=== PATIENT | female | born 1955 | race Caucasian/White ===

== ENCOUNTER 2021-01-26 08:53 | Outpatient (REF) | payer MEDICARE, SELFPAY ==
--- NOTE | ~2021-01-26 | MM_ITS ---
EXAMINATION: MM SCREENING DIGITAL BREAST TOMOSYNTHESIS, BILATERAL CLINICAL INFORMATION: Screening. Asymptomatic. The lifetime risk of breast cancer based on the Tyrer-Cuzick Model is 8%. COMPARISON: Mammography: 12/14/2019, 11/03/2018, 07/19/2017 TECHNIQUE: Digital breast tomosynthesis is performed in both the craniocaudal and mediolateral oblique views along with computer-aided detection (CAD). Synthesized 2D images are generated from the tomosynthesis. FINDINGS: There are scattered areas of fibroglandular density (ACR BI-RADS breast composition Category b). Breast tissue composition borders on predominantly fatty. Background stromal markings are stable. There are no significant masses, abnormal calcifications, or other abnormalities. The axilla and skin contours are unremarkable. No significant changes. MM/MM tomosynthesis screening BI IMPRESSION: No mammographic evidence of malignancy. ASSESSMENT: BI-RADS 1: Negative RECOMMENDATION: Routine annual mammography screening. This patient's information was entered into a reminder system with a target due date for their next mammogram.
== END 2021-01-26 08:54 | disposition home or self-care (01) ==
LOC: HO.MAMMO 08:53
PROVIDERS: PCP Internal Medicine; Visit Provider Internal Medicine
DX: Z12.31 Encounter for screening mammogram for malignant neoplasm of breast (principal)
CPT/HCPCS: 77063; 77067

== ENCOUNTER → 2021-07-16 10:30 | Outpatient (BNVA) | payer MEDICARE, SELFPAY | PROVIDERS: PCP Internal Medicine; Referring Provider Internal Medicine; Visit Provider Physician Assistant Surgical | DX: Z98.84 Bariatric surgery status (principal); Z68.29 Body mass index [BMI] 29.0-29.9, adult | CPT/HCPCS: 99212 ==

== ENCOUNTER 2021-07-20 14:25 | Outpatient (REF) | payer MEDICARE, SELFPAY ==
[2021-07-20 14:52] LABS: MANUAL DIFF FLAG NO
[2021-07-20 15:07] LABS: Basophils Absolute Auto 0.1 X10*3/uL (0.0-0.2); Basophils Percent Auto 0.9 % (0-2); Eosinophils Absolute Auto 0.3 X10*3/uL (0.0-0.4); Hematocrit 38.8 % (37-47); Hemoglobin 12.7 g/dl (12.0-16.0); Imm Gran Abs Auto 0.01 X10*3/uL (0.00-0.03); Imm Gran Pct Auto 0.2 % (0.0-0.4); Lymphocytes Percent Auto 36.6 % (20-40); Mean Corpuscular HGB Conc 32.7 g/dl (31.0-35.0); Mean Corpuscular Hemoglobin 30.8 pg (27.0-33.0); Mean Corpuscular Volume 93.9 fL (80-98); Mean Platelet Volume 10.5 fL (9.4-12.3); Monocytes Absolute Auto 0.6 X10*3/uL (0.1-1.2); Monocytes Percent Auto 9.9 % (2-11); Neutrophils Absolute Auto 2.6 X10*3/uL (2.0-8.3); Neutrophils Percent Auto 47.4 % (45-73); Platelet Count 242 X10*3/uL (160-400); Red Blood Count 4.13 X10*6/uL (4.20-5.50); Red Cell Distribution Width 12.9 % (11.0-16.0); White Blood Count 5.6 X10*3/uL (4.8-10.8)
[2021-07-20 15:31] LABS: Estimated Average Glucose 94 mg/dL; Hemoglobin A1c % 4.9 %
[2021-07-20 16:02] LABS: Alanine Aminotransferase 11 U/L (0-31); Albumin Level 4.4 g/dL (3.5-5.0); Alkaline Phosphatase 78 U/L (39-117); Anion Gap 11 (12-20); Aspartate Amino Transferase 20 U/L (5-31); Bilirubin Total 0.7 mg/dL (0.0-1.0); Blood Urea Nitrogen 21 mg/dL (9-16); C Reactive Protein 0.57 mg/dL (< or = 0.50); Calcium 9.9 mg/dL (8.4-10.2); Carbon Dioxide 26 mmol/L (22-29); Chloride 107 mmol/L (96-108); Cholesterol 245 mg/dL; Estimated Glomerular Filt Rate > 60; Glucose Random 95 mg/dL (60-115); HDL Cholesterol 67 mg/dL; Iron 94 mcg/dL (30-160); LDL Cholesterol Calculated 143 mg/dl; Percent Iron Saturation 27 % (15-50); Potassium 4.2 mmol/L (3.3-5.1); Sodium 140 mmol/L (135-145); Total Iron Binding Capacity 352 mcg/dL (228-428); Total Protein 7.2 g/dL (6.5-8.0); Triglycerides 177 mg/dL; Unsaturated Iron Binding 258 ug/dL
[2021-07-20 16:25] LABS: Ferritin 93 ng/mL (10-250); TSH reflex Free T4 0.97 uIU/mL (0.32-4.0); Vitamin D 25-OH Total 38.7 ng/mL (>30)
[2021-07-20 16:37] LABS: Folate 15.3 ng/mL (> or = 4.0); Vitamin B12 302 pg/mL (200-900)
[2021-07-21 17:05] LABS: PTHI 33 pg/mL (14-64)
[2021-07-23 07:31] LABS: Zinc 70 mcg/dL (60-130)
[2021-07-25 01:17] LABS: Vitamin A 55 mcg/dL (38-98)
[2021-07-25 09:46] LABS: Vitamin B1 34 nmol/L (8-30)
== END 2021-07-20 14:26 | disposition home or self-care (01) ==
LOC: HO.LAB 14:25
PROVIDERS: PCP Internal Medicine; Visit Provider Physician Assistant Surgical
DX: E66.9 Obesity, unspecified (principal); Z98.84 Bariatric surgery status
CPT/HCPCS: 36415; 80053; 80061; 82306; 82607; 82728; 82746; 83036; 83540; 83970; 84425; 84443; 84590; 84630; 85025; 86140

== ENCOUNTER 2022-01-28 09:10 | Outpatient (REF) | payer MEDICARE, SELFPAY ==
--- NOTE | ~2022-01-28 | MM_ITS ---
EXAMINATION: MM SCREENING DIGITAL BREAST TOMOSYNTHESIS, BILATERAL CLINICAL INFORMATION: Screening. Asymptomatic. Prior history reduction mammoplasty, 2006. The lifetime risk of breast cancer based on the Tyrer-Cuzick Model is 7%. COMPARISON: Mammography: 01/26/2021, 12/14/2019, 11/03/2018, 07/19/2017 TECHNIQUE: Digital breast tomosynthesis is performed in both the craniocaudal and mediolateral oblique views along with computer-aided detection (CAD). Synthesized 2D images are generated from the tomosynthesis. FINDINGS: There are scattered areas of fibroglandular density (ACR BI-RADS breast composition Category b). There are no significant masses, abnormal calcifications, or other abnormalities. Parenchymal pattern is similar to prior studies. The axilla and skin contours are unremarkable. MM/MM tomosynthesis screening BI IMPRESSION: No mammographic evidence of malignancy. ASSESSMENT: BI-RADS 1: Negative RECOMMENDATION: Routine annual mammography screening. This patient's information was entered into a reminder system with a target due date for their next mammogram.
== END 2022-01-28 09:11 | disposition home or self-care (01) ==
LOC: HO.MAMMO 09:10
PROVIDERS: PCP Internal Medicine; Visit Provider Internal Medicine
DX: Z12.31 Encounter for screening mammogram for malignant neoplasm of breast (principal)
CPT/HCPCS: 77063; 77067

== ENCOUNTER → 2023-01-10 10:29 | Outpatient (BNVA) | payer MEDICARE, SELFPAY | PROVIDERS: PCP Internal Medicine; Visit Provider Physician Assistant Surgical | DX: E66.3 Overweight (principal); Z68.29 Body mass index [BMI] 29.0-29.9, adult | CPT/HCPCS: 99212 ==

== ENCOUNTER 2023-01-17 09:23 | Outpatient (REF) | payer MEDICARE, SELFPAY ==
[2023-01-17 09:46] LABS: MANUAL DIFF FLAG NO
[2023-01-17 10:00] LABS: Basophils Absolute Auto 0.1 X10*3/uL (0.0-0.2); Basophils Percent Auto 1.3 % (0-2); Eosinophils Absolute Auto 0.2 X10*3/uL (0.0-0.4); Eosinophils Percent Auto 5.4 % (0-4); Hematocrit 39.1 % (37.0-47.0); Hemoglobin 12.6 g/dl (12.0-16.0); Imm Gran Abs Auto 0.01 X10*3/uL (0.00-0.03); Imm Gran Pct Auto 0.2 % (0.0-0.4); Lymphocytes Absolute Auto 1.5 X10*3/uL (1.2-4.9); Lymphocytes Percent Auto 33.6 % (20-40); Mean Corpuscular HGB Conc 32.2 g/dl (31.0-35.0); Mean Corpuscular Hemoglobin 30.2 pg (27.0-33.0); Mean Corpuscular Volume 93.8 fL (80.0-98.0); Mean Platelet Volume 10.5 fL (9.4-12.3); Monocytes Absolute Auto 0.5 X10*3/uL (0.1-1.2); Monocytes Percent Auto 10.1 % (2-11); Neutrophils Absolute Auto 2.2 x10*3/uL (2.0-8.3); Neutrophils Percent Auto 49.4 % (45-73); Platelet Count 228 X10*3/uL (160-400); Red Blood Count 4.17 X10*6/uL (4.20-5.50); Red Cell Distribution Width 12.6 % (11.0-16.0); White Blood Count 4.5 X10*3/uL (4.8-10.8)
[2023-01-17 10:07] LABS: Estimated Average Glucose 103 mg/dL; Hemoglobin A1c % 5.2 %
[2023-01-17 10:37] LABS: Anion Gap 10 (12-20); Blood Urea Nitrogen 20 mg/dL (9-16); C Reactive Protein 0.41 mg/dL (< or = 0.50); Carbon Dioxide 28 mmol/L (22-29); Chloride 107 mmol/L (96-108); Cholesterol 227 mg/dL; Estimated Glomerular Filt Rate > 60; Glucose Random 89 mg/dL (60-115); HDL Cholesterol 65 mg/dL; Iron 133 mcg/dL (30-160); LDL Cholesterol Calculated 142 mg/dl; Percent Iron Saturation 42 % (15-50); Potassium 4.3 mmol/L (3.3-5.1); Sodium 141 mmol/L (135-145); Total Iron Binding Capacity 313 mcg/dL (228-428); Triglycerides 100 mg/dL; Unsaturated Iron Binding 180 ug/dL
[2023-01-17 10:56] LABS: Ferritin 88 ng/mL (10-250); Folate 13.5 ng/mL (> or = 4.0); Vitamin B12 442 pg/mL (200-900); Vitamin D 25-OH Total 41.3 ng/mL (>30)
[2023-01-19 13:23] LABS: Calcium (PTHI) 10.2 mg/dL (8.6-10.4); PTHI 31 pg/mL (16-77)
[2023-01-20 06:13] LABS: Zinc 74 mcg/dL (60-130)
[2023-01-21 17:44] LABS: Vitamin A 53 mcg/dL (38-98)
[2023-01-25 17:03] LABS: Vitamin B1 20 nmol/L (8-30)
== END 2023-01-17 09:24 | disposition home or self-care (01) ==
LOC: HO.LAB 09:23
PROVIDERS: PCP Internal Medicine; Visit Provider Physician Assistant Surgical
DX: E66.3 Overweight (principal); Z98.84 Bariatric surgery status
CPT/HCPCS: 36415; 80048; 80061; 82306; 82607; 82728; 82746; 83036; 83540; 83970; 84425; 84443; 84590; 84630; 85025; 86140

== ENCOUNTER 2023-01-26 09:28 | Day surgery (SDC) | payer MEDICARE, SELFPAY ==
--- NOTE | 2023-01-25 11:02 | HO.ANESPROP2 ---
HPI - Anesthesia Eval Consult details Narrative: 67yo F for Colonoscopy PMFSH Active Problems Active Problems: All Active Problems (Updated 01/25/23 @ 10:21 by Adriana Olsen, RN) Obesity (BMI 30.0-34.9) (Acute) S/P laparoscopic sleeve gastrectomy (Acute) Overweight (BMI 25.0-29.9) (Acute) Past Medical History Medical History Bipolar disorder GERD (gastroesophageal reflux disease) HAIM (obstructive sleep apnea) Steatosis, liver Surgical History Surgical History H/O section H/O colonoscopy H/O gastric sleeve H/O repair of rotator cuff H/O tubal ligation History of left oophorectomy Hx laparoscopic cholecystectomy S/P laparoscopic hernia repair Social History Social History Alcohol intake: never Patient Tobacco Use Status: Never used Tobacco Use of substances other than those prescribed or required for medical reasons: No Are you DNR?: No Advance Directives: No Advance Directives Information Provided: Yes Meds Allergies Allergy/AdvReac Type Severity Reaction Status Date / Time No Known Allergies Allergy Verified 01/10/23 10:35 [No Known Allergies*] Exam Exam Date and Time: January 25, 2023 1102 Pertinent Lab Results Pertinent Lab Results: Laboratory Tests 01/17/23 01/17/23 09:45 09:45 WBC 4.5 L Hgb 12.6 Hct 39.1 Plt Count 228 Sodium 141 Potassium 4.3 Chloride 107 Carbon Dioxide 28 BUN 20 H Creatinine 0.75 Assessment and Plan Assessment Anesthesia Assessment: Chart Reviewed
[2023-01-26 09:59] VITALS: BMI 28.3
[2023-01-26 10:04] VITALS: BP 134/68; PULSE 77; RESP 16; TEMP 36.3; O2SAT 98
[2023-01-26] MEDS: Lactated Ringers 1,000 ML 100 ML IVCONT (10:08)
--- NOTE | 2023-01-26 10:48 | P.BOP_ITS ---
Brief Operative Note Date of Service: 01/26/23 Pre-op diagnosis: Abdominal pain, ,Screening Post-op diagnosis: other (Hiatal hernia, Rectal polyp) Procedure: EGD with biospies, Colonoscopy to the cecum and TI with bx/removal of polyp Surgeon: Daniel Ortiz Anesthesia: MAC Was an Chemical Dependency Professional used for this Procedure?: No Estimated blood loss (mL): 2.0 Pathology: other (A. Descending duodenum B. Gastric antrum C. EG Junction at 35cm D. Rectal polyp) Condition: stable Disposition: PACU
[2023-01-26 11:49] VITALS: BP 106/56; PULSE 68; RESP 16; TEMP 36.3; O2SAT 98
--- NOTE | 2023-01-26 11:49 | PM.OP ---
Brief Operative Note Date of Service: 01/26/23 Pre-op diagnosis: Screening Post-op diagnosis: other (Diverticulosis) Procedure: Colonoscopy to the cecum Surgeon: Daniel Ortiz Anesthesia: MAC Was an Quality Assurance Qa Lab Technician used for this Procedure?: No Estimated blood loss (mL): 0 Pathology: none sent Condition: stable Disposition: PACU
[2023-01-26 12:04] VITALS: BP 145/73; PULSE 67; RESP 16; O2SAT 98
[2023-01-26 12:21] VITALS: TEMP 36.4
--- NOTE | 2023-01-26 22:38 | OP_ITS ---
DATE OF SERVICE: 01/26/2023 SURGEON: Daniel Ortiz MD INDICATIONS: The patient presents for evaluation of colorectal cancer screening and personal history of tubular adenoma of the colon. Full consent has been obtained from her for this, including risks of bleeding and perforation. PREOPERATIVE DIAGNOSIS: Colorectal cancer screening and personal history of tubular adenoma of the colon. POSTOPERATIVE DIAGNOSIS: Colorectal cancer screening, personal history of tubular adenoma of the colon, diverticulosis, and internal hemorrhoids. PROCEDURE PERFORMED: Colonoscopy to the cecum. ESTIMATED BLOOD LOSS: COMPLICATIONS: ANESTHESIA: Monitored anesthesia care. ASSISTANTS: SPECIMENS: DESCRIPTION OF PROCEDURE: The patient was placed in the left lateral decubitus position. The digital rectal exam revealed no abnormalities. The Olympus video pediatric colonoscope was entered into the rectum and advanced easily to cecum. Once in the cecum, I did identify normal appearing cecal polyps in the appendiceal orifice, a normal-appearing ileocecal valve. The entire cecum and ileocecal valve appeared normal. There was transillumination of light deep in the right lower quadrant. The scope was slowly withdrawn assessing all mucosal surfaces carefully. Perforation was excellent. I do not visualize any sign of polyps, colitis, nor angiodysplasia. There was a mild amount of sigmoid diverticulosis. In the rectum, the scope was retroflexed visualizing internal hemorrhoids, but no other pathology. The rectal mucosa appeared normal. Scope was straightened out, withdrawn from patient. She tolerated procedure well, was returned to the recovery area in stable condition. IMPRESSION: 1. Diverticulosis. 2. Internal hemorrhoids. PLAN: Given her previous history, I would recommend a followup colonoscopy in 5 years for further screening and surveillance. She will otherwise see me on a p.r.n. basis. MD PAYAL Summers/TAPAN / [phone]
== END 2023-01-26 13:11 | disposition home or self-care (01) ==
PROVIDERS: PCP Internal Medicine; Visit Provider Internal Medicine
PROC: 0DJD8ZZ Inspection of Lower Intestinal Tract, Via Natural or Artificial Opening Endoscopic (ICD-10-PCS; CPT 45378; principal; 2023-01-26 10:30)
DX: Z12.11 Encounter for screening for malignant neoplasm of colon (principal); Z86.010 Personal history of colon polyps; K57.30 Diverticulosis of large intestine without perforation or abscess without bleeding; K64.8 Other hemorrhoids; K21.9 Gastro-esophageal reflux disease without esophagitis; G47.33 Obstructive sleep apnea (adult) (pediatric); F31.9 Bipolar disorder, unspecified; K76.0 Fatty (change of) liver, not elsewhere classified; Z90.49 Acquired absence of other specified parts of digestive tract; Z98.84 Bariatric surgery status
CPT/HCPCS: G0105

== ENCOUNTER 2023-02-03 10:06 | Outpatient (REF) | payer MEDICARE, SELFPAY ==
--- NOTE | ~2023-02-03 | MM_ITS ---
EXAMINATION: MM SCREENING DIGITAL BREAST TOMOSYNTHESIS, BILATERAL CLINICAL INFORMATION: Screening. Asymptomatic. The lifetime risk of breast cancer based on the Tyrer-Cuzick Model is 7.0%. COMPARISON: Mammography: January 28, 2022 and studies dating back to June 01, 2016 TECHNIQUE: Digital breast tomosynthesis is performed in both the craniocaudal and mediolateral oblique views along with computer-aided detection (CAD). Synthesized 2D images are generated from the tomosynthesis. FINDINGS: There are scattered areas of fibroglandular density (ACR BI-RADS breast composition Category b). There are no significant masses, abnormal calcifications, or other abnormalities. MM/MM tomosynthesis screening BI IMPRESSION: No significant changes from prior exam. ASSESSMENT: BI-RADS 1: Negative RECOMMENDATION: Routine annual mammography screening. This patient's information was entered into a reminder system with a target due date for their next mammogram.
== END 2023-02-03 10:07 | disposition home or self-care (01) ==
LOC: HO.MAMMO 10:06
PROVIDERS: PCP Internal Medicine; Visit Provider Internal Medicine
DX: Z12.31 Encounter for screening mammogram for malignant neoplasm of breast (principal)
CPT/HCPCS: 77063; 77067

== ENCOUNTER 2023-10-03 11:57 | Outpatient (REF) | payer MEDICARE, SELFPAY ==
--- NOTE | ~2023-10-03 | XR_ITS ---
EXAMINATION: XR SHOULDER, LEFT CLINICAL INFORMATION: Pain in the shoulder COMPARISON: Left shoulder x-ray July 2019. TECHNIQUE: AP external rotation, Grashey, scapular Y, and axillary views of the left shoulder. FINDINGS: Glenohumeral joint: Marginal osteophytes along the inferior aspect of the humeral head increased compared to prior.. No definite joint space narrowing. Mild arthrosis of the acromioclavicular joint unchanged. Surrounding bone and soft tissues unremarkable. Incidental note made of spondylosis of the cervical spine unchanged. XR/XR shoulder LT min 2V IMPRESSION: Mild osteoarthritis of the glenohumeral joint slightly progressed compared to prior.
== END 2023-10-03 11:58 | disposition home or self-care (01) ==
LOC: HO.HOSX 11:57
PROVIDERS: Visit Provider Orthopaedic Surgery
DX: M24.812 Other specific joint derangements of left shoulder, not elsewhere classified (principal); M25.512 Pain in left shoulder; M47.812 Spondylosis without myelopathy or radiculopathy, cervical region
CPT/HCPCS: 73030; 99202

== ENCOUNTER 2023-10-03 12:33 | Outpatient (AMB) | payer MEDICARE, SELFPAY ==
--- NOTE | 2023-10-03 12:48 | A.OFFVIS_ITS ---
Intake Intake Visit Reasons: New Pt - Left Shoulder Pain Intake Note: Stefany is a 67 year old left hand dominant female who presents today for a new patient appointment with complaints of left shoulder pain. Hx of right shoulder 07/12/2018. Patient reports that she has had ongoing pain in the shoulder for about 6 months now, her pain is described as an aching pain. Pain worsened with lateral and above the head movements Allergies No Known Allergies [No Known Allergies*] Allergy (Verified 01/10/23 10:35) HPI New Pt - Left Shoulder Pain HPI Details Stefany is a 67 year old right hand dominant woman who presents with complaints of left shoulder pain. She has pain with daily activity, worse with overhead activity. her pain has been present for ~6 months now. She denies any prior treatment options. She would like to discuss possible injections. She has a hx of right shoulder 07/12/23, with good relief. [facility] Medical History (Updated 10/03/23 @ 13:04 by Noah Gallardo MD) Bipolar disorder GERD (gastroesophageal reflux disease) Steatosis, liver HAIM (obstructive sleep apnea) Surgical History H/O repair of rotator cuff H/O gastric sleeve History of left oophorectomy H/O tubal ligation H/O colonoscopy S/P laparoscopic hernia repair Hx laparoscopic cholecystectomy H/O section Social History Alcohol intake: never Patient Tobacco Use Status: Never used Tobacco Review of Systems Const All systems reviewed & are unremarkable except as noted in HPI and below Physical Exam Const General: no acute distress, alert and awake Orientation/consciousness: patient oriented x3 HEENT Head: Yes normocephalic and Yes atraumatic Eyes EOM: EOMs intact bilaterally Resp Effort & Inspection: normal respiratory effort and able to speak in complete sentences Cardio Jugular venous distension: no JVD Skin General skin exam: turgor normal Rashes: no rashes Neuro General: patient oriented x3 Extrem Other: + H/N 30/90/130/L5 Psych Appearance: grossly normal Affect: normal affect Attitude: cooperative Office Procedures Joint Injection/Drain Joint Injection/Drain Details: no injection Coding Procedure code (CPT) selection complete Results Reviewed Results Reviewed: I personally reviewed relevant radiographs. Mild shoulder OA Assessment & Plan Assessment & Plan (1) Internal derangement of left shoulder: Code(s): M24.812 - Other specific joint derangements of left shoulder, not elsewhere classified Plan: Left shoulder JUDAH vs internal derangement. Discussed injections and PT. Will try PT before injections Plan Scribed for Noah Gallardo MD by Taiwo Mesa, medical record librarian, on 10/03/23 at 12:55 PM, EST. Orders: Orders PT Evaluation and Treatment 10/03/23 M24.812 - Other specific joint derangements of left shoulder, not elsewhere classified Coding Level of Care Code New Pt Level 3 (19728) Diagnoses Internal derangement of left shoulder M24.812
== END 2023-10-03 13:06 | disposition home or self-care (01) ==
PROVIDERS: PCP Internal Medicine; Visit Provider Orthopaedic Surgery
DX: M24.812 Other specific joint derangements of left shoulder, not elsewhere classified (principal)
CPT/HCPCS: 99203

== ENCOUNTER 2023-10-21 07:00 | Outpatient (RCR) | payer MEDICARE, SELFPAY ==
--- NOTE | 2023-10-05 14:23 | MHC.PT.EP ---
[facility] [place] Office [place] Office [place] Office [address] [phone] F: [phone] F: [phone] F: [phone] F: [phone] Physical Therapy Plan of Care Date of Evaluation: 10/05/23 Date of Surgery: Diagnosis: Internal derangement of L shoulder Assessment: Patient is a 67 year old R handed female who presents with s/s consistent with internal derangement of L shoulder, L shoulder pain. She does not currently work but likes to stay active. Patient past medical history includes R rotator cuff surgery 4 years ago. Current impairments include pain, posture, ROM, strength, activity tolerance and functional mobility. 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 Patient is motivated with good rehab potential. Skilled PT will address impairments and functional limitations in order to achieve goals. Frequency and Duration: The patient will be seen 2x/week for 5 weeks Short Term Goals: I with HEP - 2 weeks AROM flexion to 150, ER to 55, IR to 50 - 3 weeks Able to sleep pain free - 3 weeks Care Home Goals: SPADI 30/130 or better - 5 weeks Full pain free AROM - 5 weeks Strength 4/5 grossly - 5 weeks Able to reach 2# overhead into cupboard for 3 minute s- 5 weeks Treatment Plan: Modalities to reduce pain, spasms and effusion. Manual therapy to restore motion and function. Therapeutic exercise to improve strength and flexibility. Neuromuscular re-education for posture and balance. Therapeutic activities to return to functional activities of daily living. Electronically signed by: Aly Rosas, PT Please sign and return to therapist. Thank you for your referral.
--- NOTE | 2024-06-26 10:53 | MHC.PT.DC ---
[facility] [place] Office [place] Office [place] Office [address] [phone] F: [phone] F: [phone] F: [phone] F: [phone] Physical Therapy Discharge Report Diagnosis: Internal derangement of L shoulder Date of Surgery: Date of Evaluation: 10/05/23 Date of Discharge: 12/29/23 Treatments to Date: 6 Cancellations to Date: No Shows to Date: Discharge Status: Independent with HEP Discharge Summary: 10/21/23: pt doing well, understands the importance of strengthening and is happy with progress. Continued POC, no adverse reactions noted. 10/19/23: pt progressing well with skilled PT. min s/s today. restore functional level and activity level. 10/14/23: pt has been feeling better overall but still with pain at night when sleeping based on position. HEP updated. educated on mechanics. 10/12/23: pt progressing well with ROM and strength. tissue tension in LS and teres. progress as tolerated NV. 10/07/23: noncompliant with HEP but is aware of need to participate at home. we did add ER and rows to HEP. assess response NV. Patient is a 67 year old R handed female who presents with s/s consistent with internal derangement of L shoulder, L shoulder pain. She does not currently work but likes to stay active. Patient past medical history includes R rotator cuff surgery 4 years ago. Current impairments include pain, posture, ROM, strength, activity tolerance and functional mobility. 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 Patient is motivated with good rehab potential. Skilled PT will address impairments and functional limitations in order to achieve goals. Electronically signed by: Aly Rosas, PT Please sign and return to therapist. Thank you for your referral.
== END 2024-06-26 10:53 | disposition home or self-care (01) ==
LOC: HO.PTCHIC 07:00
PROVIDERS: PCP Internal Medicine; Visit Provider Orthopaedic Surgery
DX: M24.812 Other specific joint derangements of left shoulder, not elsewhere classified (principal)
CPT/HCPCS: 97110; 97140; 97162

== ENCOUNTER 2024-01-11 10:51 | Outpatient (AMB) | payer MEDICARE, SELFPAY ==
--- NOTE | 2024-01-11 10:53 | A.OFFVIS_ITS ---
Intake VS Expanded 01/11/24 11:04 BP 134/78 Blood Pressure Location Rt brachial Blood Pressure Position Sitting Pulse 82 Pulse Source Pulse Oximeter Temp 96.8 F Temperature Source Tympanic Pulse Oximetry 98 Oxygen Delivery Method Room Air Height 5 ft 0.5 in Weight 151 lb 3.2 oz BMI 29.0 Body Fat % 39.1 Body Fat Mass 59.0 Fat Free Mass 92.0 Visceral Fat Rating 11.0 Body Water % 42.8 Body Water Mass 64.6 Muscle Mass/Score 87.4 Basal Metabolic Rate/Score 1,266 Intake Visit Reasons: (OV) PO LSG 12/23/16 Egg Packer Required: No Allergies No Known Allergies [No Known Allergies*] Allergy (Verified 01/11/24 10:54) Medication List - Last Reconciled 01/11/24 by JERARDO Almanza calcium citrate-vitamin D3 250 mg-5 mcg (200 unit) 2 tabs PO BID lactobacillus combination no.9 (Adult 50 Plus Probiotic) 4,000 mmu cells PO DAILY [id number]-FA-vit K 45 mg iron- 800 mcg-120 mcg (Bariatric Multivitamins) 1 cap PO DAILY HPI HPI Comments History of Present Illness Details Patient is a pleasant 68-year-old female who returns to the office today in follow-up. She is approximately 7 years status post sleeve gastrectomy performed on 12/23/2016. She was last seen in the office 01/10/2023 with a weight of 154.6 lb and a BMI of 29.7. Today's weight is 151.2 lb with a BMI of 29. She feels great and is planning on hiking the [place] in [place] at the end of the summer. She has no complaints, but would liek to lose 10-15 pounds prior to her hike in May Meal plan: over the last 2 weeks. Celebrate 4:1 1 scoop in 8 oz 1 % cow milk 2 egg omlet dinner w 6 forks protein and 4 forks veg another shake 1/2 celebrate bar 2 x per week at night drinking 48 oz Exercise: walking [place] and [employer] 4 x per week [employer] strength and endurance 300-350 calories4 days per week. walking 3 miles around [facility]. Any post op complications: none HAIM: resolved DM: never HTN: never Hyperlipidemia: never GERD:?0-5 scale ??0 = no symptoms ??1 = symptoms noticeable but not bothersome 2 =symptoms bothersome but not daily ? 3 = symptoms bothersome and daily 4 = symptoms affect daily activities 5 = symptoms are incapacitating, unable to do daily activities ? How bad is the heartburn: 0 ? Heartburn while lying down: 0 ? Heartburn when standing up: 0 ? Heartburn after meals: 0 ? Does heartburn change your diet: 0 ? Does heartburn wake you up from sleep: 0 ? Do you have difficulty swallowin ? Do you have pain with swallowin ? If you take medicine for your reflux, does this affect your daily life: 0 Satisfaction with present condition - satisfied or not satisfied: Yes, satisfied [facility] Medical History Bipolar disorder GERD (gastroesophageal reflux disease) Steatosis, liver HAIM (obstructive sleep apnea) Surgical History H/O repair of rotator cuff H/O gastric sleeve History of left oophorectomy H/O tubal ligation H/O colonoscopy S/P laparoscopic hernia repair Hx laparoscopic cholecystectomy H/O section Social History Alcohol intake: never Patient Tobacco Use Status: Never used Tobacco Physical Exam Const General: cooperative and no acute distress Orientation/consciousness: patient oriented x3 Resp Effort & Inspection: normal respiratory effort Auscultation: clear to auscultation bilaterally Cardio Rate: regular rate Rhythm: regular rhythm GI Inspection: Yes normal to inspection and Yes incision (well healed) Palpation (GI): Soft to palpation and no masses Neuro General: patient oriented x3 Assessment & Plan Assessment & Plan (1) S/P laparoscopic sleeve gastrectomy: Code(s): Z98.84 - Bariatric surgery status Plan: doing well, check yearly labs. change meal plan slightly: Celebrate 4:1 1 scoop in 8 oz unsweetened almond milk 2 egg omelet dinner w 6 forks protein and 4 forks veg another shake 1/2 celebrate bar 2 x per week at night RTC 1 year or sooner if any issues Orders: Orders Insulin Today E66.3 - Overweight, Z98.84 - Bariatric surgery status Hemoglobin A1c Today E66.3 - Overweight, Z98.84 - Bariatric surgery status Complete Blood Count Auto Diff Today E66.3 - Overweight, Z98.84 - Bariatric surgery status Vitamin B12 and Folate Today E66.3 - Overweight, Z98.84 - Bariatric surgery status Zinc Today E66.3 - Overweight, Z98.84 - Bariatric surgery status TSH reflex Free T4 Today E66.3 - Overweight, Z98.84 - Bariatric surgery status Ferritin Today E66.3 - Overweight, Z98.84 - Bariatric surgery status Basic Metabolic Panel Today E66.3 - Overweight, Z98.84 - Bariatric surgery status Lipid Panel Today E66.3 - Overweight, Z98.84 - Bariatric surgery status IRON PROFILE Today E66.3 - Overweight, Z98.84 - Bariatric surgery status C Reactive Protein Today E66.3 - Overweight, Z98.84 - Bariatric surgery status Vitamin B1 Today E66.3 - Overweight, Z98.84 - Bariatric surgery status Vitamin A Today E66.3 - Overweight, Z98.84 - Bariatric surgery status Vitamin D 25-OH Total Today E66.3 - Overweight, Z98.84 - Bariatric surgery status Coding Level of Care Code Est Pt Level 4 (33837) Diagnoses S/P laparoscopic sleeve gastrectomy Z98.84
[2024-01-11 11:04] VITALS: BP 134/78; PULSE 82; TEMP 36; O2SAT 98; BMI 29.0
== END 2024-01-11 11:28 | disposition home or self-care (01) ==
PROVIDERS: Visit Provider Physician Assistant Surgical
DX: E66.3 Overweight (principal); Z68.29 Body mass index [BMI] 29.0-29.9, adult; Z90.3 Acquired absence of stomach [part of]; Z98.84 Bariatric surgery status
CPT/HCPCS: 99214

== ENCOUNTER → 2024-01-11 10:51 | Outpatient (BNVA) | payer MEDICARE, SELFPAY | PROVIDERS: Visit Provider Physician Assistant Surgical | DX: E66.3 Overweight (principal); Z71.3 Dietary counseling and surveillance; Z98.84 Bariatric surgery status | CPT/HCPCS: 99212 ==

== ENCOUNTER 2024-01-21 07:34 | Outpatient (REF) | payer MEDICARE, SELFPAY ==
[2024-01-21 07:53] LABS: MANUAL DIFF FLAG NO
[2024-01-21 08:28] LABS: Basophils Absolute Auto 0.1 X10*3/uL (0.0-0.2); Basophils Percent Auto 1.5 % (0-2); Eosinophils Absolute Auto 0.3 X10*3/uL (0.0-0.4); Eosinophils Percent Auto 6.3 % (0-4); Hematocrit 38.5 % (37.0-47.0); Hemoglobin 12.5 g/dl (12.0-16.0); Imm Gran Abs Auto 0.01 X10*3/uL (0.00-0.03); Imm Gran Pct Auto 0.3 % (0.0-0.4); Lymphocytes Absolute Auto 1.5 X10*3/uL (1.2-4.9); Lymphocytes Percent Auto 37.7 % (20-40); Mean Corpuscular HGB Conc 32.5 g/dl (31.0-35.0); Mean Corpuscular Hemoglobin 30.5 pg (27.0-33.0); Mean Corpuscular Volume 93.9 fL (80.0-98.0); Mean Platelet Volume 10.5 fL (9.4-12.3); Monocytes Absolute Auto 0.4 X10*3/uL (0.1-1.2); Monocytes Percent Auto 9.8 % (2-11); Neutrophils Absolute Auto 1.8 x10*3/uL (2.0-8.3); Neutrophils Percent Auto 44.4 % (45-73); Platelet Count 216 X10*3/uL (160-400); Red Cell Distribution Width 12.9 % (11.0-16.0)
[2024-01-21 08:43] LABS: Estimated Average Glucose 100 mg/dL; Hemoglobin A1c % 5.1 % (<6.0)
[2024-01-21 09:13] LABS: Anion Gap 12 (12-20); Blood Urea Nitrogen 23 mg/dL (9-16); Calcium 10.1 mg/dL (8.4-10.2); Carbon Dioxide 27 mmol/L (22-29); Chloride 105 mmol/L (96-108); Cholesterol 199 mg/dL (<200); Estimated Glomerular Filt Rate > 60; Glucose Random 89 mg/dL (60-115); HDL Cholesterol 60 mg/dL (>40); Iron 85 mcg/dL (30-160); LDL Cholesterol Calculated 127 mg/dL (<100); Percent Iron Saturation 32 % (15-50); Potassium 4.1 mmol/L (3.3-5.1); Sodium 140 mmol/L (135-145); Total Iron Binding Capacity 266 mcg/dL (228-428); Triglycerides 64 mg/dL (<150); Unsaturated Iron Binding 181 ug/dL
[2024-01-21 09:32] LABS: Ferritin 120 ng/mL (10-250); Insulin 4 uU/mL (2-29); TSH reflex Free T4 1.15 uIU/mL (0.32-4.0); Vitamin D 25-OH Total 40.8 ng/mL (>30)
[2024-01-21 09:44] LABS: Folate 14.7 ng/mL (> or = 4.0); Vitamin B12 592 pg/mL (200-900)
[2024-01-24 16:03] LABS: Zinc 88 mcg/dL (60-130)
[2024-01-25 12:28] LABS: Vitamin B1 32 nmol/L (8-30)
[2024-01-26 04:44] LABS: Vitamin A 49 mcg/dL (38-98)
== END 2024-01-21 07:35 | disposition home or self-care (01) ==
LOC: HO.LAB 07:34
PROVIDERS: PCP Internal Medicine; Visit Provider Physician Assistant Surgical
DX: E66.3 Overweight (principal); Z98.84 Bariatric surgery status
CPT/HCPCS: 36415; 80048; 80061; 82306; 82607; 82728; 82746; 83036; 83525; 83540; 84425; 84443; 84590; 84630; 85025; 86140

== ENCOUNTER 2024-02-09 10:26 | Outpatient (REF) | payer MEDICARE, SELFPAY ==
--- NOTE | ~2024-02-09 | XR_ITS ---
EXAMINATION: XR CHEST CLINICAL INFORMATION: Cough. Evaluate for pneumonia. COMPARISON: Chest radiograph dated 12/24/2016. TECHNIQUE: 2 views of the chest were obtained. FINDINGS: No airspace consolidation. No pleural effusion or pneumothorax. Stable cardiomediastinal silhouette. Left upper quadrant surgical clips are redemonstrated. XR/XR chest 2V IMPRESSION: No acute cardiopulmonary findings.
== END 2024-02-09 10:27 | disposition home or self-care (01) ==
LOC: HO.MAMMO 10:26
PROVIDERS: PCP Internal Medicine; Visit Provider Internal Medicine
DX: Z12.31 Encounter for screening mammogram for malignant neoplasm of breast (principal); R05.9 Cough, unspecified
CPT/HCPCS: 71046; 77063; 77067

== ENCOUNTER → 2024-02-09 10:30 | Outpatient (BNV) | payer MEDICARE, SELFPAY | PROVIDERS: PCP Internal Medicine; Visit Provider Radiology Diagnostic Radiology | DX: Z12.31 Encounter for screening mammogram for malignant neoplasm of breast (principal) | CPT/HCPCS: 77063; 77067 ==

== ENCOUNTER 2024-02-20 14:21 | Outpatient (REF) | payer MEDICARE, SELFPAY ==
[2024-02-20 15:33] LABS: Influenza A PCR NEGATIVE (Negative); Influenza B PCR NEGATIVE (Negative); Resp Syncy Virus RNA Qual PCR NEGATIVE (Negative); SARS COV2 PCR INHOUSE NEGATIVE (Negative)
== END 2024-02-20 14:22 | disposition home or self-care (01) ==
LOC: HO.LNP 14:21
PROVIDERS: Visit Provider Internal Medicine
DX: R05.9 Cough, unspecified (principal); R50.9 Fever, unspecified
CPT/HCPCS: 0241U

== ENCOUNTER → 2024-04-03 08:07 | Outpatient (REF) | payer MEDICARE, SELFPAY ==
--- NOTE | 2024-04-03 08:10 | CA_ITS ---
Acquisition Time: 2024-04-03 08:20:38 Total Exercise Time: 00:09:14 Test Indications: R06.09 Medications: SEE H Protocol: LINNEA Max HR: 129 BPM 84% of Pred: 152 BPM Max BP: 140/070 mmHG Max Work Load: 10.4 METS Exercise stress test with exercise 9 min 14 sec of Linnea protocol, achieving 84% MPHR, without anginal symptoms, without arrythmia, with normotensive response to exercise, without EKG changes meeting criteria for ischemia. Test reviewed with Dr Sparks. Referred By: Marcellus June Overread By: LUISITO MCKINNON
== END ==
LOC: HO.CARD 08:07
PROVIDERS: PCP Internal Medicine; Visit Provider Internal Medicine
DX: R06.09 Other forms of dyspnea (principal)
CPT/HCPCS: 93017

== ENCOUNTER → 2024-04-03 08:10 | Outpatient (BNV) | payer MEDICARE, SELFPAY | PROVIDERS: PCP Internal Medicine; Visit Provider Nurse Practitioner Family | DX: R06.09 Other forms of dyspnea (principal) | CPT/HCPCS: 93016; 93018 ==

== ENCOUNTER 2024-07-31 09:59 | Outpatient (REF) | payer MEDICARE, SELFPAY ==
[2024-08-01 21:37] LABS: Lyme Abs Screen <0.90 index
[2024-08-03 01:12] LABS: Babesia IgG <1:64 titer (<1:64); Babesia IgM <1:20 titer (<1:20)
== END 2024-07-31 10:00 | disposition home or self-care (01) ==
LOC: HO.LAB 09:59
PROVIDERS: PCP Internal Medicine; Visit Provider Internal Medicine
DX: T14.8XXA Other injury of unspecified body region, initial encounter (principal); W57.XXXA Bitten or stung by nonvenomous insect and other nonvenomous arthropods, initial encounter
CPT/HCPCS: 36415; 86617; 86618; 86753

== ENCOUNTER 2024-08-28 11:33 | Outpatient (REF) | payer MEDICARE, SELFPAY ==
[2024-08-30 03:08] LABS: Lyme Abs Screen <0.90 index
[2024-09-06 16:23] LABS: Babesia IgG <1:64 titer (<1:64); Babesia IgM <1:20 titer (<1:20)
== END 2024-08-28 11:34 | disposition home or self-care (01) ==
LOC: HO.LAB 11:33
PROVIDERS: PCP Internal Medicine; Visit Provider Internal Medicine
DX: T14.8XXA Other injury of unspecified body region, initial encounter (principal); W57.XXXA Bitten or stung by nonvenomous insect and other nonvenomous arthropods, initial encounter
CPT/HCPCS: 36415; 86617; 86618; 86753

== ENCOUNTER 2024-12-24 13:31 | Outpatient (AMB) | payer MEDICARE, SELFPAY ==
--- NOTE | 2024-12-24 13:36 | A.OFFVIS_ITS ---
VS Expanded 12/24/24 13:45 BP 127/60 Blood Pressure Location Rt brachial Blood Pressure Position Sitting Pulse 84 Pulse Source Pulse Oximeter Temp 98.2 F Temperature Source Temporal Artery Scan Pulse Oximetry 96 Oxygen Delivery Method Room Air Height 5 ft 5 in Weight 149 lb BMI 24.8 Body Fat % 36.9 Body Fat Mass 54.8 Fat Free Mass 94.0 Visceral Fat Rating 10.0 Body Water % 444.4 Body Water Mass 66.2 Muscle Mass/Score 89.0 Basal Metabolic Rate/Score 1,282 Intake Visit Reasons: (OV) PO LSG 12/23/16 Client Strategist Required: No Allergies No Known Allergies [No Known Allergies*] Allergy (Verified 01/11/24 10:54) Medication List - Last Reconciled 12/24/24 by JERARDO Almanza calcium citrate-vitamin D3 250 mg-5 mcg (200 unit) 2 tabs PO BID lactobacillus combination no.9 (Adult 50 Plus Probiotic) 4,000 mmu cells PO DAILY nkvvmwgxtooc-xlz-oqkk-FA-vit K 45 mg iron- 800 mcg-120 mcg (Bariatric Multivitamins) 1 cap PO DAILY HPI Comments Details: Patient is a pleasant 68-year-old female who returns to the office today in follow-up. She is approximately 8 years status post sleeve gastrectomy perfor med on 12/23/2016. She was last seen in the office 12/2023 with a weight of 151.2 lb and a BMI of 29. Today's weight is 149 lb with a BMI of 28.6. She feels great and is planning on hiking the highest peak [employer] in [place] at the end of the summer. She states that due to the excess skin of the abdomen, she gets frequent irritations. She wipes the area clean every time she goes to the bathroom and also showers daily. She applies vqeb-ony-kwvkwkk antifungal creams however rash recurs. She has had less rash during the winter months, but as she is very active and very active hiker, as the weather warms, rashes or more frequent. Meal plan: over the last 2 weeks. 2 Celebrate 4:1 1 scoop in 8 oz almond milk 2 egg omlet dinner w 6 forks protein and 4 forks veg 1/2 celebrate bar 2 x per week at night drinking 48 oz Exercise: walking [place] 4 x per week [employer] strength and endurance 300-350 calories4 days per week. walking 3 miles around [facility]. Any post op complications: none HAIM: resolved DM: never HTN: never Hyperlipidemia: never GERD:?0-5 scale ??0 = no symptoms ??1 = symptoms noticeable but not bothersome 2 =symptoms bothersome but not daily ? 3 = symptoms bothersome and daily 4 = symptoms affect daily activities 5 = symptoms are incapacitating, unable to do daily activities ? How bad is the heartburn: 0 ? Heartburn while lying down: 0 ? Heartburn when standing up: 0 ? Heartburn after meals: 0 ? Does heartburn change your diet: 0 ? Does heartburn wake you up from sleep: 0 ? Do you have difficulty swallowin ? Do you have pain with swallowin ? If you take medicine for your reflux, does this affect your daily life: 0 Satisfaction with present condition - satisfied or not satisfied: Yes, satisfied [facility] Medical History Bipolar disorder GERD (gastroesophageal reflux disease) Steatosis, liver HAIM (obstructive sleep apnea) Surgical History H/O repair of rotator cuff H/O gastric sleeve History of left oophorectomy H/O tubal ligation H/O colonoscopy S/P laparoscopic hernia repair Hx laparoscopic cholecystectomy H/O section Social History Alcohol intake: never Patient Tobacco Use Status: Never used Tobacco Physical Exam Const General: cooperative and no acute distress Orientation/consciousness: patient oriented x3 Resp Effort & Inspection: normal respiratory effort Auscultation: clear to auscultation bilaterally Cardio Rate: regular rate Rhythm: regular rhythm GI Inspection: Yes normal to inspection and Yes incision (well healed) Palpation (GI): Soft to palpation and no masses Skin Other: Pannus grade 2 without active maceration or rash Neuro General: patient oriented x3 Assessment & Plan Assessment & Plan (1) S/P laparoscopic sleeve gastrectomy: Code(s): Z98.84 - Bariatric surgery status Category: Surgical Plan: Continue current meal plan Check yearly follow-up labs Encouraged to continue with her exercise regimen. We will have her return to the office in approximately 2 months to follow-up on her excess skin (2) Excess skin: Code(s): L98.7 - Excessive and redundant skin and subcutaneous tissue Category: Medical Plan: Excess abdominal skin secondary to excessive weight loss. She reports recurrent rash treated with oipk-mzq-anyyjfa creams. The excess skin has impacted her ADLs in the sense of increased hygiene necessity as well as discomfort and irritation when the rash occurs. We will prescribe antifungal cream and have her return to the office in 2 months. Orders: Orders Complete Blood Count Auto Diff Today Z98.84 - Bariatric surgery status Lipid Panel Today Z98.84 - Bariatric surgery status IRON PROFILE Today Z98.84 - Bariatric surgery status Comprehensive Met. Panel Today Z98.84 - Bariatric surgery status Zinc Today Z98.84 - Bariatric surgery status C Reactive Protein Today Z98.84 - Bariatric surgery status Vitamin A Today Z98.84 - Bariatric surgery status TSH reflex Free T4 Today Z98.84 - Bariatric surgery status Ferritin Today Z98.84 - Bariatric surgery status Insulin Today Z98.84 - Bariatric surgery status Hemoglobin A1c Today Z98.84 - Bariatric surgery status Vitamin B12 and Folate Today Z98.84 - Bariatric surgery status Vitamin B1 Today Z98.84 - Bariatric surgery status Vitamin D 25-OH Total Today Z98.84 - Bariatric surgery status Medications: New clotrimazole 1% (Antifungal (clotrimazole)) 1 appl topical BID 45 grams 3RF
[2024-12-24 13:45] VITALS: BP 127/60; PULSE 84; TEMP 36.8; O2SAT 96; BMI 24.8
--- OUTSIDE RECORDS SUMMARY | 2024-12-24 15:18 | XMS_ITS | Patient Health Record ---
Author Organization [facility] Address [address] [place] [address] Care Team Providers Care Film Sorter Name Role Phone Marcellus June MD Primary Care Provider Daniel Pratt Unavailable [phone] Allergies No Known Allergies Reason For Referral No Information Medications Medication SIG (Take, Route, Fr equency, Duration) Notes Start Date End Date Status Calcium + D3 12/10/2022 Active K-Nusrat 1 1 tablet orally once a day Not-Taking Furosemide 20 mg 1 tablet Oral once a day Not-Taking Probiotic - as directed Orally 12/10/2022 Active Multivitamin - 1 tablet Orally Once a day for 30 day(s) 12/10/2022 Active Immunizations Vaccine Route Administration Date Status Comme nts Influenza Unknown 09/01/2022 Administered Problems Problem Type SNOMED Code ICD Code Onset Dates Problem Status W/U Status Risk Notes Problem 351514853 Encounter for screening for malignant neoplasm of colon (Z12.11) Active confirmed Problem 842595046 History of adenomatous polyp of colon (Z86.010) Active confirmed Problem History of polyp of colon (situation) (890297770) Personal history of colonic polyps (Z86.010) Active confirmed Problem Diverticular disease of colon (360142279) Diverticulosis of large intestine without perforation or abscess without bleeding (K57.30) Active confirmed Problem Screening for malignant neoplasm of rectum (038147742) Encounter for screening for malignant neoplasm of rectum (Z12.12) Active confirmed Problem 952726486 History of colon polyps (Z86.010) Active confirmed Problem 467383147379303 Pre-procedural examination (Z01.818) Active confirmed Problem 402672237 Abnormal UGI series (R93.3) Active confirmed Plan Of Treatment Future Test Test Name Order Date UPPER GI ENDOSCOPY 09/14/2016 COLONOSCOPY 09/14/2016 COLONOSCOPY 12/10/2022 Insurance Providers Payer Name Payer Address Payer Phone Subscriber Number Group Number Insured Name Patient Relationship to Insured Coverage Start Date Coverage End Date MEDICARE OF [place] [address] [place] [address] [phone] [id number] EVELINA SOMMER Self - patient is the insured Medical (General) History Medical History History ICD Code Bipolar disorder Denies [place],DM,CVA,Lung disease,renal dise ase 2 previous colonoscopies in [place]--most recent was in 2008--2 tubular adenomas Colonoscopy in 02/2017 with me with the r emoval of a tubular adenoma Surgical History Surgery Date(Month/Year) Cholecystectomy C-sections x3 Tubal ligation Umbilical hernia repair with mesh Left oopherectomy for an ectopic pregnan cy Bariatric surgery with a gas tric sleeve procedure with Dr. Bey in 12/2016. She also had an upper endoscopy with him. Rotator cuff on the right
== END 2024-12-24 14:08 | disposition home or self-care (01) ==
PROVIDERS: PCP Internal Medicine; Visit Provider Physician Assistant Surgical
DX: L98.7 Excessive and redundant skin and subcutaneous tissue (principal); Z98.84 Bariatric surgery status
CPT/HCPCS: 99214; G2211

== ENCOUNTER → 2024-12-24 13:31 | Outpatient (BNVA) | payer MEDICARE, SELFPAY | PROVIDERS: PCP Internal Medicine; Visit Provider Physician Assistant Surgical | DX: E66.3 Overweight (principal); L98.7 Excessive and redundant skin and subcutaneous tissue; Z68.24 Body mass index [BMI] 24.0-24.9, adult; Z98.84 Bariatric surgery status | CPT/HCPCS: 99212 ==

== ENCOUNTER 2024-12-28 08:27 | Outpatient (REF) | payer MEDICARE, SELFPAY ==
--- OUTSIDE RECORDS SUMMARY | 2024-12-28 08:39 | XMS_ITS | Patient Health Record ---
Author Organization [facility] Address [address] [place] [address] Care Team Providers Care Upper And Bottom Lacer Hand Name Role Phone Marcellus June MD Primary Care Provider Daniel Pratt Unavailable [phone] Allergies No Known Allergies Reason For Referral [...] Problem Status W/U Status Risk Notes Problem 615248823 Encounter for screening for malignant neoplasm of colon (Z12.11) Active confirmed Problem 024790800 History of adenomatous polyp of colon (Z86.010) Active confirmed Problem History of polyp of colon (situation) (608678459) Personal history of colonic polyps (Z86.010) Active confirmed Problem Diverticular disease of colon (862069272) Diverticulosis of large intestine without perforation or abscess without bleeding (K57.30) Active confirmed Problem Screening for malignant neoplasm of rectum (127461468) Encounter for screening for malignant neoplasm of rectum (Z12.12) Active confirmed Problem 981187825 History of colon polyps (Z86.010) Active confirmed Problem 719417366516461 Pre-procedural examination (Z01.818) Active confirmed Problem 190741848 Abnormal UGI series (R93.3) Active confirmed Plan Of Treatment Future Test Test Name Order Date UPPER GI ENDOSCOPY 09/14/2016 COLONOSCOPY 09/14/2016 COLONOSCOPY 12/10/2022 Insurance Providers Payer Name Payer Address Payer Phone Subscriber Number Group Number Insured Name Patient Relationship to Insured Coverage Start Date Coverage End Date MEDICARE OF [place] [address] [place] [address] [phone] [id number] EVELINA SOMMER Self - patient is the insured Medical (General) History Medical History History ICD Code Bipolar disorder Denies [place],DM,CVA,Lung disease,renal dise ase 2 previous colonoscopies in [place]--most recent was in 2008--2 tubular adenomas Colonoscopy [...]
[2024-12-28 08:58] LABS: MANUAL DIFF FLAG NO
[2024-12-28 09:12] LABS: Basophils Absolute Auto 0.1 X10*3/uL (0.0-0.2); Basophils Percent Auto 1.5 % (0-2); Eosinophils Absolute Auto 0.3 X10*3/uL (0.0-0.4); Eosinophils Percent Auto 6.2 % (0-4); Hematocrit 37.7 % (37.0-47.0); Hemoglobin 12.2 g/dl (12.0-16.0); Imm Gran Abs Auto 0.02 X10*3/uL (0.00-0.03); Imm Gran Pct Auto 0.4 % (0.0-0.4); Lymphocytes Absolute Auto 1.6 X10*3/uL (1.2-4.9); Mean Corpuscular HGB Conc 32.4 g/dl (31.0-35.0); Mean Corpuscular Hemoglobin 30.3 pg (27.0-33.0); Mean Corpuscular Volume 93.8 fL (80.0-98.0); Mean Platelet Volume 9.8 fL (9.4-12.3); Monocytes Absolute Auto 0.4 X10*3/uL (0.1-1.2); Monocytes Percent Auto 8.8 % (2-11); Neutrophils Absolute Auto 2.3 x10*3/uL (2.0-8.3); Neutrophils Percent Auto 49.1 % (45-73); Platelet Count 243 X10*3/uL (160-400); Red Blood Count 4.02 X10*6/uL (4.20-5.50); Red Cell Distribution Width 13.1 % (11.0-16.0); White Blood Count 4.7 X10*3/uL (4.8-10.8)
[2024-12-28 09:20] LABS: Estimated Average Glucose 103 mg/dL; Hemoglobin A1c % 5.2 % (<6.0)
[2024-12-28 10:10] LABS: Alanine Aminotransferase 16 U/L (0-31); Albumin Level 4.1 g/dL (3.5-5.0); Alkaline Phosphatase 86 U/L (39-117); Anion Gap 12 (12-20); Aspartate Amino Transferase 26 U/L (5-31); Bilirubin Total 0.7 mg/dL (0.0-1.0); Blood Urea Nitrogen 24 mg/dL (9-16); C Reactive Protein 0.38 mg/dL (< or = 0.50); Calcium 9.6 mg/dL (8.4-10.2); Carbon Dioxide 27 mmol/L (22-29); Chloride 107 mmol/L (96-108); Cholesterol 220 mg/dL (<200); Estimated Glomerular Filt Rate > 60; Glucose Random 84 mg/dL (60-115); HDL Cholesterol 64 mg/dL (>40); Iron 86 mcg/dL (30-160); LDL Cholesterol Calculated 136 mg/dL (<100); Percent Iron Saturation 30 % (15-50); Sodium 142 mmol/L (135-145); Total Iron Binding Capacity 287 mcg/dL (228-428); Total Protein 7.4 g/dL (6.5-8.0); Triglycerides 101 mg/dL (<150); Unsaturated Iron Binding 201 ug/dL
[2024-12-28 10:38] LABS: Folate 15.8 ng/mL (> or = 4.0); Vitamin B12 368 pg/mL (200-900)
[2024-12-28 10:44] LABS: Ferritin 115 ng/mL (10-250); Vitamin D 25-OH Total 39.2 ng/mL (>30)
[2024-12-28 11:45] LABS: Insulin 5 uU/mL (2-29)
[2025-01-01 04:02] LABS: Zinc 99 mcg/dL (60-130)
[2025-01-02 01:09] LABS: Vitamin A 67 mcg/dL (38-98)
[2025-01-06 11:44] LABS: Vitamin B1 27 nmol/L (8-30)
== END 2024-12-28 08:28 | disposition home or self-care (01) ==
LOC: HO.LAB 08:27
PROVIDERS: PCP Internal Medicine; Visit Provider Physician Assistant Surgical
DX: Z98.84 Bariatric surgery status (principal); Z13.1 Encounter for screening for diabetes mellitus
CPT/HCPCS: 36415; 80053; 80061; 82306; 82607; 82728; 82746; 83036; 83525; 83540; 84425; 84443; 84590; 84630; 85025; 86140

== ENCOUNTER 2025-02-14 10:35 | Outpatient (REF) | payer MEDICARE, SELFPAY | END 2025-02-14 10:36 | disposition home or self-care (01) | LOC: HO.MAMMO 10:35 | PROVIDERS: Absent Provider Internal Medicine; PCP Internal Medicine; Visit Provider Internal Medicine | DX: Z12.31 Encounter for screening mammogram for malignant neoplasm of breast (principal) | CPT/HCPCS: 77063; 77067 ==

== ENCOUNTER → 2025-02-14 10:45 | Outpatient (BNV) | payer MEDICARE, SELFPAY | PROVIDERS: Absent Provider Internal Medicine; PCP Internal Medicine; Visit Provider Internal Medicine | DX: Z12.31 Encounter for screening mammogram for malignant neoplasm of breast (principal) | CPT/HCPCS: 77063; 77067 ==

== ENCOUNTER 2025-02-27 09:27 | Outpatient (AMB) | payer MEDICARE, SELFPAY ==
--- NOTE | 2025-02-27 09:27 | MHC.PC.OV ---
Vital Signs 02/27/25 09:32 02/27/25 10:07 Height 5 ft 5 in Weight 67.585 kg BMI 24.8 BP 144/80 H 106/60 Respiration 14 Pulse 82 Pulse Source Pulse Oximeter Temp 97.5 F Temp Source Temporal Artery Scan Pulse Oximetry (%) 97 Oxygen Delivery Method Room Air Intake Visit Reasons: Routine Principal Associate Required: No Accompanied by: Self / Same As Patient Allergies No Known Allergies [No Known Allergies*] Allergy (Verified 02/27/25 09:28) Medication List - Last Reconciled 02/27/25 by JERARDO Manuel calcium citrate-vitamin D3 250 mg-5 mcg (200 unit) 2 tabs PO BID clotrimazole 1% (Antifungal (clotrimazole)) 1 appl topical BID hvaayokehqrt-wof-muok-FA-vit K 45 mg iron- 800 mcg-120 mcg (Bariatric Multivitamins) 1 cap PO DAILY vit C,E-Cu-ruofw-lutein-zeaxan 250-90-40-1 mg (PreserVision AREDS-2) 1 tab PO BID HPI HPI Comments History of Present Illness Details 57-year-old female with history of bipolar disorder and obesity s/p sleeve gastrectomy now with BMI 24.8 presents to the office today for routine visit and to establish care. She continue swallowing with weight management and will likely be undergoing panniculectomy and hernia repair in the coming future. She continues with healthy lifestyle though has gained about 30 lb since her surgery. She is planning on running a half marathon and hikes extensively. Her bipolar is managed with lifestyle. She has been stable without any rai or depression. She does follow with a therapist but is not taking any medication. She does tell me that she had a tick bite on the abdomen over a year ago with tick analysis showing Lyme and babesiosis though she did not get treated. She then had another tick bite on the medial aspect of the right lower leg about 3 months ago which was also not treated or evaluated. Denies any fevers, chills, arthralgias, myalgias, headache, fatigue. She otherwise has no concerns. [facility] Medical History (Updated 02/27/25 @ 10:02 by JERARDO Manuel) Tick bite Bipolar disorder GERD (gastroesophageal reflux disease) Steatosis, liver HAIM (obstructive sleep apnea) Surgical History H/O repair of rotator cuff H/O gastric sleeve History of left oophorectomy H/O tubal ligation H/O colonoscopy S/P laparoscopic hernia repair Hx laparoscopic cholecystectomy H/O section Social History Alcohol intake: never Patient Tobacco Use Status: Never used Tobacco Review of Systems Const All systems reviewed & are unremarkable except as noted in HPI and below Physical exam (Primary Care) Vital Signs: Last Vital Signs Temp 97.5 F 02/27/25 09:32 Pulse 82 02/27/25 09:32 Resp 14 02/27/25 09:32 BP 144/80 H 02/27/25 09:32 Pulse Ox 97 02/27/25 09:32 Oxygen Delivery Method Room Air 02/27/25 09:32 BMI result Body Mass Index 24.8 Tobacco/Smoking Status: Tobacco use Status Patient Tobacco Use Status Never used Tobacco 02/27/25 09:34 Const Other: Constitutional - Awake and Alert, No apparent distress Eyes - PERRLA, EOMI Cardiovascular - S1S2, RRR, No edema Respiratory - Normal lung expansion, Normal respiratory effort, No respiratory distress, CTA bilaterally Extremities - no calf tenderness bilaterally, no swelling Skin - Warm/Dry. Scab to the medial aspect of the right lower leg without purulent drainage or bleeding Neurological - Alert & oriented x3, Psychological - Appropriate affect Coding Level of Care Code Tele New Pt Level 4 (37146) Diagnoses Tick bite W57.XXXA Overweight (BMI 25.0-29.9) E66.3 Bipolar disorder F31.9 Assessment & Plan Assessment & Plan (1) Tick bite: Code(s): W57.XXXA - Bitten or stung by nonvenomous insect and other nonvenomous arthropods, initial encounter Category: Medical Plan: Currently asymptomatic. But does have history of tick bite with tick analysis showing babesiosis and Lyme which was not treated. Now new tick bite to the medial aspect of the right lower leg. Tick panel ordered. She is interested in treating this should she test positive for tick-borne illness. It is possible that the leukopenia noted on CBC related to tick bite, but unclear. CBC will be rechecked today. (2) Overweight (BMI 25.0-29.9): Code(s): E66.3 - Overweight Category: Medical Plan: Congratulated on recent weight loss. Continue following with weight management. Continue healthy diet and exercise. (3) Bipolar disorder: Code(s): F31.9 - Bipolar disorder, unspecified Category: Medical Plan: Stable. Continue following with therapist. Not currently on medication. Plan Follow-up for annual physical exam. Tick panel and CBC ordered. Prior labs reviewed including renal function, electrolyte levels, level panel and cholesterol level. ASCVD risk score 5.0%. Statin not indicated. Orders: Orders Complete Blood Count Auto Diff Today W57.XXXA - Bitten or stung by nonvenomous insect and other nonvenomous arthropods, initial encounter Tick-borne Disease Molecular Today W57.XXXA - Bitten or stung by nonvenomous insect and other nonvenomous arthropods, initial encounter
[2025-02-27 09:32] VITALS: BP 144/80; PULSE 82; RESP 14; TEMP 36.4; O2SAT 97; BMI 24.8
--- OUTSIDE RECORDS SUMMARY | 2025-02-27 10:00 | XMS_ITS | Patient Health Record ---
Author Organization [facility] Address [address] [place] [address] Care Team Providers Care Data Analytics Developer Name Role Phone Marcellus June MD Primary Care Provider Daniel Pratt Unavailable [phone] Allergies No Known Allergies Reason For Referral [...] Problem Status W/U Status Risk Notes Problem 612150972 Encounter for screening for malignant neoplasm of colon (Z12.11) Active confirmed Problem 377874264 History of adenomatous polyp of colon (Z86.010) Active confirmed Problem Personal history of colonic polyps (Z86.010) Active confirmed Problem Diverticular disease of colon (249629520) Diverticulosis of large intestine without perforation or abscess without bleeding (K57.30) Active confirmed Problem Screening for malignant neoplasm of rectum (117708018) Encounter for screening for malignant neoplasm of rectum (Z12.12) Active confirmed Problem 976542745 History of colon polyps (Z86.010) Active confirmed Problem 349059892403836 Pre-procedural examination (Z01.818) Active confirmed Problem 815243366 Abnormal UGI series (R93.3) Active confirmed Plan Of Treatment Future Test Test Name Order Date UPPER GI ENDOSCOPY 09/14/2016 COLONOSCOPY 09/14/2016 COLONOSCOPY 12/10/2022 Insurance Providers Payer Name Payer Address Payer Phone Subscriber Number Group Number Insured Name Patient Relationship to Insured Coverage Start Date Coverage End Date MEDICARE OF [place] [address] [place] [address] [id number] EVELINA SOMMER Self - patient is the insured Medical (General) History Medical History History ICD Code Bipolar disorder Denies [place],DM,CVA,Lung disease,renal dise ase 2 previous colonoscopies in [place]--most recent was in 2008--2 tubular adenomas Colonoscopy [...]
[2025-02-27 10:07] VITALS: BP 106/60
== END 2025-02-27 10:10 | disposition home or self-care (01) ==
LOC: HO.HMCHD 09:27
PROVIDERS: PCP Internal Medicine; Visit Provider Physician Assistant
DX: T63.481A Toxic effect of venom of other arthropod, accidental (unintentional), initial encounter (principal); E66.3 Overweight; F31.9 Bipolar disorder, unspecified; Z68.24 Body mass index [BMI] 24.0-24.9, adult

== ENCOUNTER → 2025-02-27 09:27 | Outpatient (BNVA) | payer MEDICARE, SELFPAY | PROVIDERS: PCP Internal Medicine; Visit Provider Physician Assistant | DX: Z76.89 Persons encountering health services in other specified circumstances (principal); E66.3 Overweight; Z68.24 Body mass index [BMI] 24.0-24.9, adult; F31.9 Bipolar disorder, unspecified; T14.8XXA Other injury of unspecified body region, initial encounter; W57.XXXA Bitten or stung by nonvenomous insect and other nonvenomous arthropods, initial encounter; Y93.9 Activity, unspecified; Y92.9 Unspecified place or not applicable; Y99.9 Unspecified external cause status; Z98.84 Bariatric surgery status | CPT/HCPCS: 99202 ==

== ENCOUNTER 2025-02-28 09:45 | Outpatient (REF) | payer MEDICARE, SELFPAY ==
[2025-02-28 09:52] LABS: MANUAL DIFF FLAG NO
--- OUTSIDE RECORDS SUMMARY | 2025-02-28 10:36 | XMS_ITS | Patient Health Record ---
Author Organization [facility] Address [address] [place] [address] Care Team Providers Care Dry Starch Supervisor Name Role Phone Marcellus June MD Primary Care Provider Daniel Pratt Unavailable [phone] Allergies No Known Allergies Reason For Referral [...] Problem Status W/U Status Risk Notes Problem 349358926 Encounter for screening for malignant neoplasm of colon (Z12.11) Active confirmed Problem 202119778 History of adenomatous polyp of colon (Z86.010) Active confirmed Problem Personal history of colonic polyps (Z86.010) Active confirmed Problem Diverticular disease of colon (530600322) Diverticulosis of large intestine without perforation or abscess without bleeding (K57.30) Active confirmed Problem Screening for malignant neoplasm of rectum (383188151) Encounter for screening for malignant neoplasm of rectum (Z12.12) Active confirmed Problem 751271271 History of colon polyps (Z86.010) Active confirmed Problem 052692905525921 Pre-procedural examination (Z01.818) Active confirmed Problem 439792138 Abnormal UGI series (R93.3) Active confirmed Plan Of Treatment Future Test Test Name Order Date UPPER GI ENDOSCOPY 09/14/2016 COLONOSCOPY 09/14/2016 COLONOSCOPY 12/10/2022 Insurance Providers Payer Name Payer Address Payer Phone Subscriber Number Group Number Insured Name Patient Relationship to Insured Coverage Start Date Coverage End Date MEDICARE OF [place] [address] [place] [address] [id number] EVELINA SOMMER Self - patient is the insured Medical (General) History Medical History History ICD Code Bipolar disorder Denies [place],DM,CVA,Lung disease,renal dise ase 2 previous colonoscopies in [place]--most recent was in 2008--2 tubular adenomas Colonoscopy [...]
[2025-02-28 10:45] LABS: Basophils Absolute Auto 0.1 X10*3/uL (0.0-0.2); Basophils Percent Auto 1.1 % (0-2); Eosinophils Absolute Auto 0.3 X10*3/uL (0.0-0.4); Eosinophils Percent Auto 4.4 % (0-4); Hematocrit 38.9 % (37.0-47.0); Hemoglobin 12.9 g/dl (12.0-16.0); Imm Gran Abs Auto 0.02 X10*3/uL (0.00-0.03); Imm Gran Pct Auto 0.3 % (0.0-0.4); Lymphocytes Absolute Auto 2.2 X10*3/uL (1.2-4.9); Lymphocytes Percent Auto 33.2 % (20-40); Mean Corpuscular HGB Conc 33.2 g/dl (31.0-35.0); Mean Corpuscular Hemoglobin 31.1 pg (27.0-33.0); Mean Corpuscular Volume 93.7 fL (80.0-98.0); Mean Platelet Volume 10.6 fL (9.4-12.3); Monocytes Absolute Auto 0.6 X10*3/uL (0.1-1.2); Monocytes Percent Auto 8.7 % (2-11); Neutrophils Absolute Auto 3.4 x10*3/uL (2.0-8.3); Neutrophils Percent Auto 52.3 % (45-73); Platelet Count 238 X10*3/uL (160-400); Red Blood Count 4.15 X10*6/uL (4.20-5.50); Red Cell Distribution Width 12.5 % (11.0-16.0); White Blood Count 6.6 X10*3/uL (4.8-10.8)
[2025-03-01 20:28] LABS: A. Phagocytphilium DNA,RT-PCR NOT DETECTED (NOT DETECTED); Babesia Microti DNA, RT-PCR NOT DETECTED (NOT DETECTED); Borrelia Miyamotoi,DNA RT-PCR NOT DETECTED (NOT DETECTED); E.Chaffeensis DNA RT-PCR NOT DETECTED (NOT DETECTED); Lyme(Borrelia ssp)DNA RT-PCR NOT DETECTED (NOT DETECTED)
== END 2025-02-28 09:46 | disposition home or self-care (01) ==
LOC: HO.LAB 09:45
PROVIDERS: PCP Physician Assistant; Visit Provider Physician Assistant
DX: T14.8XXA Other injury of unspecified body region, initial encounter (principal); W57.XXXA Bitten or stung by nonvenomous insect and other nonvenomous arthropods, initial encounter
CPT/HCPCS: 36415; 85025; 87468; 87469; 87478; 87484; 87798

== ENCOUNTER 2025-03-12 09:36 | Outpatient (AMB) | payer MEDICARE, SELFPAY ==
--- NOTE | 2025-03-12 09:37 | MHC.OFFVISWM ---
VS Expanded 03/12/25 09:49 BP 122/63 Blood Pressure Location Rt brachial Blood Pressure Position Sitting Pulse 77 Pulse Source Pulse Oximeter Temp 96.7 F L Temperature Source Temporal Artery Scan Pulse Oximetry 97 Oxygen Delivery Method Room Air Height 5 ft 0.5 in Weight 145 lb 12.8 oz BMI 28.0 Body Fat % 33.7 Body Fat Mass 49.2 Fat Free Mass 96.6 Visceral Fat Rating 8.0 Body Water % 46.6 Body Water Mass 68.0 Muscle Mass/Score 91.8 Basal Metabolic Rate/Score 1,303 Intake Visit Reasons: OV PO LSG 12/23/16 Ditching Machine Engineer Required: No Allergies No Known Allergies [No Known Allergies*] Allergy (Verified 03/12/25 09:44) Medication List - Last Reconciled 03/12/25 by JERARDO Almanza calcium citrate-vitamin D3 250 mg-5 mcg (200 unit) 2 tabs PO BID clotrimazole 1% (Antifungal (clotrimazole)) 1 appl topical BID pcdunskezfvn-fvz-bvnd-FA-vit K 45 mg iron- 800 mcg-120 mcg (Bariatric Multivitamins) 1 cap PO DAILY vit C,R-Wk-eathx-lutein-zeaxan 250-90-40-1 mg (PreserVision AREDS-2) 1 tab PO BID HPI Comments Details: Patient is a pleasant 69-year-old female who returns to the office today in follow-up. She is approximately 8 years 2 months status post sleeve gastrectomy performed on 12/23/2016. Today's weight is 145.8 lb with a BMI of 24.2. She states her weight upon beginning her weight loss journey was 202 pounds. She has lost a total of 56.2 lb or 27.8% total body weight loss. She feels great and is [place] end of the [place]. She states that due to the excess skin of the abdomen, she gets frequent irritations. She wipes the area clean every time she goes to the bathroom and also showers daily. She applies svmp-czg-ddtgdfg antifungal creams however rash recurs. She has had less rash during the winter months, but as she is very active and very active hiker, as the weather warms, rashes or more frequent. She was last seen in the office in December, at which time clotrimazole cream was prescribed. She states she has 3-4 times per month with resolution between exacerbations however she has recurrence. Meal plan: over the last 2 weeks. 2 Celebrate 4:1 1 scoop in 8 oz almond milk 2 egg omlet dinner w 6 forks protein and 4 forks veg 1/2 celebrate bar 2 x per week at night drinking 48 oz Exercise: walking [place] and [employer] [place] 4 x per week [employer] strength and endurance 300-350 calories4 days per week. walking 3 miles around [facility]. [facility] Medical History Tick bite Bipolar disorder GERD (gastroesophageal reflux disease) Steatosis, liver HAIM (obstructive sleep apnea) Surgical History H/O repair of rotator cuff H/O gastric sleeve History of left oophorectomy H/O tubal ligation H/O colonoscopy (~01/26/23) S/P laparoscopic hernia repair Hx laparoscopic cholecystectomy H/O section Social History Alcohol intake: never Patient Tobacco Use Status: Never used Tobacco Physical Exam Const General: healthy appearing and no acute distress Resp Effort & Inspection: normal respiratory effort Auscultation: clear to auscultation bilaterally Cardio Rate: regular rate Rhythm: regular rhythm GI Auscultation: normal bowel sounds Skin Other: Abdominal pannus grade 2. No active rash but evidence of chronic dermatomal irritation Extrem General: Yes normal to inspection Assessment & Plan Assessment & Plan (1) S/P laparoscopic sleeve gastrectomy: Code(s): Z98.84 - Bariatric surgery status Category: Surgical Plan: Patient is doing very well from a weight loss standpoint. She has achieved and maintained a healthy weight over the last 6 months. As a result of her significant weight loss, she has had recurrent skin rashes of her abdominal pannus. These have been recalcitrant to antifungal topical treatments. She is able to achieve resolution although recurrence. The excess skin has negatively impacted her activities of daily living such that she needs to perform increased hygiene practices, showering several times per day, pain, discomfort and itching to the abdominal area. She is an avid hiker to maintain her healthy lifestyle and the excess skin has negatively impacted her exercise capacity. As a result, we will recommend medically necessary skin removal surgery of her abdominal pannus. (2) Excess skin: Code(s): L98.7 - Excessive and redundant skin and subcutaneous tissue Category: Medical Plan: As a result of her greater than 50 lb weight loss, she has developed excess skin of her abdomen. This has caused recurrent dermatitis. She has been prescribed antifungal cream and yet still has recurrence of her rash, even with treatment of the cream. The pannus has caused negative impact on her ADLs requiring increased hygiene, the rash causes pain, itching, odor. Given the negative impact on her ADLs, recalcitrance to prescriptive medication cream, we will recommend medically necessary skin removal surgery of her abdominal pannus. Medications: Refilled clotrimazole 1% (Antifungal (clotrimazole)) 1 appl topical BID 45 grams 3RF
[2025-03-12 09:49] VITALS: BP 122/63; PULSE 77; TEMP 35.9; O2SAT 97; BMI 28.0
--- OUTSIDE RECORDS SUMMARY | 2025-03-12 10:12 | XMS_ITS | Patient Health Record ---
Author Organization [facility] Address [address] [place] [address] Care Team Providers Care Senior Director Creative Services Name Role Phone Marcellus June MD Primary Care Provider Daniel Pratt Unavailable [phone] Allergies No Known Allergies Reason For Referral [...] Problem Status W/U Status Risk Notes Problem [id number] Encounter for screening for malignant neoplasm of colon (Z12.11) Active confirmed Problem 787206270 History of adenomatous polyp of colon (Z86.010) Active confirmed Problem Personal history of colonic polyps (Z86.010) Active confirmed Problem Diverticular disease of colon (016512430) Diverticulosis of large intestine without perforation or abscess without bleeding (K57.30) Active confirmed Problem Screening for malignant neoplasm of rectum (579548302) Encounter for screening for malignant neoplasm of rectum (Z12.12) Active confirmed Problem 056394559 History of colon polyps (Z86.010) Active confirmed Problem 587735212325222 Pre-procedural examination (Z01.818) Active confirmed Problem 035967053 Abnormal UGI series (R93.3) Active confirmed Plan Of Treatment Future Test Test Name Order Date UPPER GI ENDOSCOPY 09/14/2016 COLONOSCOPY 09/14/2016 COLONOSCOPY 12/10/2022 Insurance Providers Payer Name Payer Address Payer Phone Subscriber Number Group Number Insured Name Patient Relationship to Insured Coverage Start Date Coverage End Date MEDICARE OF [address] [place] [address] [id number] EVELINA SOMMER Self - patient is the insured Medical (General) History Medical History History ICD Code Bipolar disorder Denies MO,DM,CVA,Lung disease,renal dise ase 2 previous colonoscopies in [...]
== END 2025-03-12 10:26 | disposition home or self-care (01) ==
LOC: HO.HBS 09:36
PROVIDERS: PCP Internal Medicine; Visit Provider Physician Assistant Surgical
DX: L98.7 Excessive and redundant skin and subcutaneous tissue (principal); Z90.3 Acquired absence of stomach [part of]; Z98.84 Bariatric surgery status
CPT/HCPCS: 99213; G2211

== ENCOUNTER → 2025-03-12 09:36 | Outpatient (BNVA) | payer MEDICARE, SELFPAY | PROVIDERS: PCP Internal Medicine; Visit Provider Physician Assistant Surgical | DX: Z98.84 Bariatric surgery status (principal) | CPT/HCPCS: 99212 ==

== ENCOUNTER 2025-05-23 09:05 | Outpatient (AMB) | payer MEDICARE, SELFPAY ==
--- NOTE | 2025-05-23 09:07 | MHC.OFFVISWM ---
VS Expanded 05/23/25 09:18 BP 155/70 H Blood Pressure Location Rt brachial Blood Pressure Position Sitting Pulse 84 Pulse Source Pulse Oximeter Temp 96.3 F L Temperature Source Temporal Artery Scan Pulse Oximetry 98 Oxygen Delivery Method Room Air Height 5 ft 0.5 in Weight 145 lb 12.8 oz BMI 28.0 Body Fat % 34.5 Body Fat Mass 50.2 Fat Free Mass 95.4 Visceral Fat Rating 9.0 Body Water % 46.1 Body Water Mass 67.2 Muscle Mass/Score 90.6 Basal Metabolic Rate/Score 1,292 Intake Visit Reasons: OV PO LSG 12/23/16 Electroneurodiagnostic Technologist Required: No Allergies No Known Allergies (No Known Allergies*) Allergy (Verified 05/23/25 09:14) Medication List - Last Reviewed 05/23/25 by Tatyana Turner CMA calcium citrate-vitamin D3 250 mg-5 mcg (200 unit) 2 tabs PO BID clotrimazole 1% (Antifungal (clotrimazole)) 1 appl topical BID tmvtypozguuj-vrl-tbqy-FA-vit K 45 mg iron- 800 mcg-120 mcg (Bariatric Multivitamins) 1 cap PO DAILY HPI Comments Details: Patient is a pleasant 69-year-old female who returns to the office today in follow-up. She is approximately 8 years 5 months status post sleeve gastrectomy performed on 12/23/2016. Today's weight is 145.8 lb with a BMI of 24.2. She states her weight upon beginning her weight loss journey was 202 pounds. She has lost a total of 56.2 lb or 27.8% total body weight loss. She feels great although she states that due to the excess skin of the abdomen, she gets frequent irritations. She wipes the area clean every time she goes to the bathroom and also showers daily. She was prescribed antifungal cream at her last visit approximately 3 months ago. Since that time, she has had multiple experiences of rash requiring use of the cream. The cream does help to treat the rash with resolution however this has been recalcitrant in the sense that it returns. She states that she has had approximately 3-4 episodes of rash over the last month, and 2-3 times the month prior. Meal plan: over the last 2 weeks. 2 Celebrate 4:1 1 scoop in 8 oz almond milk, 8-10, 5-7 lunch w 6 forks protein and 4 forks veg 1/2 celebrate bar after dinner drinking 48 oz Exercise: walking [place] 3 x per week walking 2 miles [facility]. [facility] Medical History Tick bite Bipolar disorder GERD (gastroesophageal reflux disease) Steatosis, liver HAIM (obstructive sleep apnea) Surgical History H/O repair of rotator cuff H/O gastric sleeve History of left oophorectomy H/O tubal ligation H/O colonoscopy (~01/26/23) S/P laparoscopic hernia repair Hx laparoscopic cholecystectomy H/O section Social History Alcohol intake: never Patient Tobacco Use Status: Never used Tobacco Physical Exam Const General: healthy appearing and no acute distress Resp Effort & Inspection: normal respiratory effort Auscultation: clear to auscultation bilaterally Cardio Rate: regular rate Rhythm: regular rhythm GI Auscultation: normal bowel sounds Skin Other: Irritation noted within the abdominal folds. Pannus grade 2 Extrem General: Yes normal to inspection Assessment & Plan Assessment & Plan (1) S/P laparoscopic sleeve gastrectomy: Code(s): Z98.84 - Bariatric surgery status Category: Surgical Plan: Recommend continuing current meal plan, maintaining consistency and discipline. Her exercise typically was significantly more however just recently her partner has become ill and she has had to help take care of him and go to medical appointments with him. She is exercising as much as she can. (2) Excess skin: Code(s): L98.7 - Excessive and redundant skin and subcutaneous tissue Category: Medical Plan: Scheduled for panniculectomy 06/18/25
[2025-05-23 09:18] VITALS: BP 155/70; PULSE 84; TEMP 35.7; O2SAT 98; BMI 28.0
--- OUTSIDE RECORDS SUMMARY | 2025-05-23 09:28 | XMS_ITS | Patient Health Record ---
Author Organization [facility] Address [address] [place] [address] Care Team Providers Care Upholstery Tech Name Role Phone Marcellus June MD Primary Care Provider Jose R Sanchez Unavailable [phone] Reason For Referral No Information Medications Medication [...] Inc [address] [place] [address] [id number] Stefany Woods Self - patient is the insured Medical (General) History Medical History History ICD Code Measles Mumps Chicken pox Surgical History Surgery Date(Month/Year) bariatric 2016 shoulder surgery- right 2018
--- OUTSIDE RECORDS SUMMARY | 2025-05-23 09:28 | XMS_ITS | Patient Health Record ---
Author Organization [facility] Address [address] [place] [address] Care Team Providers Care Software Quality Automation Engineer Name Role Phone Slade (RETIRED) Marcellus VARGHESE Primary Care Provide r Unavailable Daniel Ortiz Unavailable [phone] Allergies No Known Allergies Reason For Referral [...] Problem Status W/U Status Risk Notes Problem 333821162 Encounter for screening for malignant neoplasm of colon (Z12.11) Active confirmed Problem 663781205 History of adenomatous polyp of colon (Z86.010) Active confirmed Problem History of polyp of colon (situation) (245370735) Personal history of colonic polyps (Z86.010) Active confirmed Problem Diverticular disease of colon (668065922) Diverticulosis of large intestine without perforation or abscess without bleeding (K57.30) Active confirmed Problem Screening for malignant neoplasm of rectum (410196277) Encounter for screening for malignant neoplasm of rectum (Z12.12) Active confirmed Problem 239112044 History of colon polyps (Z86.010) Active confirmed Problem 878934466864460 Pre-procedural examination (Z01.818) Active confirmed Problem 988511315 Abnormal UGI series (R93.3) Active confirmed Plan Of Treatment Future Test Test Name Order Date UPPER GI ENDOSCOPY 09/14/2016 COLONOSCOPY 09/14/2016 COLONOSCOPY 12/10/2022 Insurance Providers Payer Name Payer Address Payer Phone Subscriber Number Group Number Insured Name Patient Relationship to Insured Coverage Start Date Coverage End Date MEDICARE OF [place] [address] [place] [phone] [id number] EVELINA SOMMER Self - patient is the insured Medical (General) History Medical History History ICD Code Bipolar disorder Denies DE,DM,CVA,Lung disease,renal dise ase 2 previous colonoscopies in [place]--most recent was in 2008--2 tubular adenomas Colonoscopy [...]
--- OUTSIDE RECORDS SUMMARY | 2025-05-23 09:28 | XMS_ITS | Clinical Summary ---
Author Organization [facility] Address [address] [place], [place] [address] Phone Care Team Providers Care Compliance Analyst Name Role Phone Marcellus June MD Primary [...] AM EST Procedure visit [facility] [id number] 11/11/2025 10:15 AM EST Procedure visit [facility] [id number] 11/11/2025 10:45 AM EST Office [facility] [place] [id number] Lucas Wong MD [address] [place], [place] [id number] [email or web address] Health Maintenance Due Date Last Done Comments [...] this topic Medical Devices Implanted Type Area Dredge Worker Device Identifier Shelf Expiration Date Model / [...] MEDICARE PART A & B Care Teams Compliance Analyst Relationship Specialty Start Date End Date Marcellus June MD [address] [place] [address] [place] [address] PCP - General Internal Medicine 01/24/23 Additional Source Comments The information contained in this document represents components of the legal health record. It is not the complete legal health record.[facility]
== END 2025-05-23 09:49 | disposition home or self-care (01) ==
LOC: HO.HBS 09:06
PROVIDERS: PCP Internal Medicine; Visit Provider Physician Assistant Surgical
DX: L98.7 Excessive and redundant skin and subcutaneous tissue (principal); E66.3 Overweight; Z68.28 Body mass index [BMI] 28.0-28.9, adult; Z98.84 Bariatric surgery status
CPT/HCPCS: 99212

== ENCOUNTER → 2025-05-23 09:05 | Outpatient (BNVA) | payer MEDICARE, SELFPAY | PROVIDERS: PCP Internal Medicine; Visit Provider Physician Assistant Surgical | DX: Z98.84 Bariatric surgery status (principal); L98.7 Excessive and redundant skin and subcutaneous tissue | CPT/HCPCS: 99212 ==

== ENCOUNTER 2025-06-03 09:26 | Outpatient (AMB) | payer MEDICARE, SELFPAY ==
--- NOTE | 2025-06-03 09:46 | A.OFFVIS_ITS ---
VS Expanded 06/03/25 09:47 Height 5 ft 0.5 in Weight 146 lb BMI 28.0 Intake Visit Reasons: TV Pre Op Panniculectomy 06/18/25 Allergies No Known Allergies (No Known Allergies*) Allergy (Verified 06/03/25 09:46) Medication List - Last Reconciled 06/03/25 by Brock Bey MD calcium citrate-vitamin D3 250 mg-5 mcg (200 unit) 2 tabs PO BID cephalexin 500 mg PO Q12H clotrimazole 1% (Antifungal (clotrimazole)) 1 appl topical BID docusate sodium (Colace) 100 mg PO DAILY nzsmrtsjwadj-rek-weum-FA-vit K 45 mg iron- 800 mcg-120 mcg (Bariatric Multivitamins) 1 cap PO DAILY ondansetron 4 mg PO Q12H vit C,V-Bd-iolfv-lutein-zeaxan 250-90-40-1 mg (PreserVision AREDS-2) 1 tab PO BID HPI HPI TV Pre Op Panniculectomy 06/18/25: Details: Start time: 9.35am, End time: 10.05am ?I spent 25 minutes speaking with the patient on the phone plus an additional 5 minutes reviewing and updating records for a total of 30 minutes HPI Comments Details: Overall weight loss: 51.8lbs, or 26.2% TBWL Is doing one Celebrate 4:1 protein shake with , one Celebrate bar and 2 meals Exercise: walking outside Wakes up: 6am, sleeps: 9pm [facility] Medical History Tick bite Bipolar disorder GERD (gastroesophageal reflux disease) Steatosis, liver HAIM (obstructive sleep apnea) Surgical History (Updated 05/28/25 @ 12:53 by Iliana Hoyos RN) Hx of cataract extraction H/O repair of rotator cuff H/O gastric sleeve History of left oophorectomy H/O tubal ligation H/O colonoscopy (~01/26/23) S/P laparoscopic hernia repair Hx laparoscopic cholecystectomy H/O section Social History Are you a primary wound care rn to a significant other at home: No Do you presently have visiting nurse or other home services: No Alcohol intake: never Patient Tobacco Use Status: Never used Tobacco Telehealth Telehealth Telehealth Platform: Telephone Location of provider rendering services: practice address Location of patient: address on file Patient Identification confirmed using: Name, : Yes Telehealth method: voice only Patient verbally consented to treatment: Yes Patient verbally consented to billing insurance company: Yes Patient informed of any privacy concerns related to visit: Yes Minutes spent on Phone/Video with Pt.: 30 Assessment & Plan Assessment & Plan (1) Excess skin: Code(s): L98.7 - Excessive and redundant skin and subcutaneous tissue Category: Medical Plan: 1. Plan for panniculectomy. Risks of infection, bleeding, asymmetry, wound dehiscence and blood clots were discussed with the patient. 2. You will have a drain the abdomen that may stay a few weeks before it may be removed 3. You will need to be doing sponge baths the first 1-2 weeks. No showers. You need to have help at home to get you up and limit your activities as much as possible for at least the 4-6 weeks after surgery 4. We will arrange for a visiting nurse to come at home to help you with dressing changes and send me pictures of the procedures. We will send at your home supplies for the dressing changes. 5. Change nutritional plan to ONE Celebrate 4:1 with ONE scoop in 8oz of water or almond milk shake at 7am-9am, two Celebrate protein bars at 10am-12pm and 1pm-3 pm, another Celebrate protein bar at 4pm-6pm and meal at 5pm (4 forks of protein and 4 forks of salad or vegetables). This will improve weight loss and healing after surgery. 6. Continue all vitamins. Take your vitamins with meal and not with the shakes 7. Do blood work not fasting any day between Tuesday06/10/25 and Tuesday06/14/25 and fern picker the antibiotic prescription from your pharmacy 8. Risks and complications were discussed the possibility of bleeding that may require transfusion, loss of the umbilicus, wound dehiscence or infection, dog ears , flap asymmetry. We also discussed the importance of strict avoidance of weight lifting. 9. Avoid aspirin, motrin, ibuprofen, Excedrin, Meloxicam, Aleve, Advil, Naproxyn. Only Tylenol Orders: Orders Partial Thromboplastin Time Today Z.818 - Encounter for other preprocedural examination Type and Screen Today Z818 - Encounter for other preprocedural examination Prothrombin Time INR Today Z.818 - Encounter for other preprocedural examination Comprehensive Met. Panel Today Z818 - Encounter for other preprocedural examination Complete Blood Count Auto Diff Today Z818 - Encounter for other preprocedural examination Medications: New cephalexin 500 mg PO Q12H 60 caps 2RF M79.3 - Panniculitis, unspecified docusate sodium (Colace) 100 mg PO DAILY 90 caps 0RF K59.00 - Constipation, unspecified ondansetron 4 mg PO Q12H 20 tabs 0RF nausea and vomiting R11.0 - Nausea
[2025-06-03 09:47] VITALS: BMI 28.0
--- OUTSIDE RECORDS SUMMARY | 2025-06-03 09:58 | XMS_ITS | Patient Health Record ---
Author Organization [facility] Address [address] [place] [address] Care Team Providers Care Cook Pie Name Role Phone Slade (RETIRED) Marcellus VARGHESE Primary Care Provide r Unavailable Daniel Ortiz Unavailable [phone] Allergies No Known Allergies Reason For Referral [...] Problem Status W/U Status Risk Notes Problem [id number] Encounter for screening for malignant neoplasm of colon (Z12.11) Active confirmed Problem 513459993 History of adenomatous polyp of colon (Z86.010) Active confirmed Problem History of polyp of colon (situation) (388728656) Personal history of colonic polyps (Z86.010) Active confirmed Problem Diverticular disease of colon (827440742) Diverticulosis of large intestine without perforation or abscess without bleeding (K57.30) Active confirmed Problem Screening for malignant neoplasm of rectum (805558571) Encounter for screening for malignant neoplasm of rectum (Z12.12) Active confirmed Problem 977910731 History of colon polyps (Z86.010) Active confirmed Problem 083998899386210 Pre-procedural examination (Z01.818) Active confirmed Problem 134845589 Abnormal UGI series (R93.3) Active confirmed Plan Of Treatment Future Test Test Name Order Date UPPER GI ENDOSCOPY 09/14/2016 COLONOSCOPY 09/14/2016 COLONOSCOPY 12/10/2022 Insurance Providers Payer Name Payer Address Payer Phone Subscriber Number Group Number Insured Name Patient Relationship to Insured Coverage Start Date Coverage End Date MEDICARE OF [place] [address] [place] [address] [phone] [id number] EVELINA SOMMER Self - patient is the insured Medical (General) History Medical History History ICD Code Bipolar disorder Denies [place],DM,CVA,Lung disease,renal dise ase 2 previous colonoscopies in [place]--most recent was in 2008--2 tubular adenomas Colonoscopy [...]
--- OUTSIDE RECORDS SUMMARY | 2025-06-03 09:58 | XMS_ITS | Patient Health Record ---
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
--- OUTSIDE RECORDS SUMMARY | 2025-06-03 09:58 | XMS_ITS | Clinical Summary ---
Author Organization [facility] Address [address] [place], [place] [id number] Phone Care Team Providers Care Practice Business Asst Name Role Phone Marcellus June MD Primary [...] AM EST Procedure visit [facility] [id number] 11/11/2025 10:15 AM EST Procedure visit [facility] [id number] 11/11/2025 10:45 AM EST Office Visit [facility] [place] [id number] Lucas Wong MD [address] [place], [place] [id number] [email or web address] Health Maintenance Due Date Last Done Comments [...] this topic Medical Devices Implanted Type Area Legal Intern Device Identifier Shelf Expiration Date Model / [...] MEDICARE PART A & B Care Teams Practice Business Asst Relationship Specialty Start Date End Date Marcellus June MD [address] [place] [address] [place] [address] PCP - General Internal Medicine 01/24/23 Additional Source Comments The information contained in this document represents components of the legal health record. It is not the complete legal health record.[facility]
== END 2025-06-03 10:06 | disposition home or self-care (01) ==
PROVIDERS: PCP Physician Assistant; Visit Provider Surgery
DX: L98.7 Excessive and redundant skin and subcutaneous tissue (principal)
CPT/HCPCS: 99214

== ENCOUNTER 2025-06-11 08:59 | Outpatient (REF) | payer MEDICARE, SELFPAY | END 2025-06-11 09:00 | disposition home or self-care (01) | LOC: HO.LAB 08:59 | PROVIDERS: PCP Physician Assistant; Visit Provider Surgery | DX: Z01.818 Encounter for other preprocedural examination (principal); Z13.89 Encounter for screening for other disorder ==

== ENCOUNTER 2025-06-18 06:03 | Day surgery (SDC) | payer MEDICARE, SELFPAY ==
--- OUTSIDE RECORDS SUMMARY | 2025-05-07 12:15 | XMS_ITS | Clinical Summary ---
Author Organization [facility] Address [address] [place], [place] [id number] Phone Care Team Providers Care Ruby Software Developer Name Role Phone Marcellus June MD Primary Care Provider Allergies No known active allergies Medications multivitamin-min erals-lutein (CENTRUM SILVER) Tab Take 1 tablet by mouth daily. Active calcium citrate (CALCITRATE) 950 mg (200 mg elemental) tablet Take 1 tablet by mouth daily. Active cholecalciferol (VITAMIN D3) 25 MCG (1,000 unit) tablet Take 1,000 Units by mouth daily. Active prednisoLONE acetate (PRED FORTE) 1 % ophthalmic suspensionIndica tions:1 drop 3x per day for 1 week, 1 drop every 12 hours for 1 week, 1 drop every day for 1 week, then stop Place 1 drop into the left eye 3 (three) times a day. Indications : 1 drop 3x per day for 1 week, 1 drop every 12 hours for 1 week, 1 drop every day for 1 week, then stop 5 mL 10/02/2024 Active Active Problems No known active problems Social History Tobacco Use Types Packs/Day Years Used Date Smoking Tobacco: Never Smokeless Tobacco: Never Tobacco Cessation:Counseling Given: Not Answered Alcohol Use Standard Drinks/Week Comments Not Currently 0 (1 standard drink = 0.6 oz pur e alcohol) Education Answer Date Recorded Are you interested in more education? Not on franca e 02/11/2023 Are you concerned about learning? Not on file 02/11/2023 No 02/11/2023 No 02/11/2023 Digital Access Answer Date Recorded No 03/14/2023 No 03/14/2023 Reliable internet access at home? Not on file 03/14/2023 Device with a working camera? Not on file Comments Unknown Sex and Gender Information Value Date Recorded Sex Assigned at Not on file Legal Sex Female 9:55 PM EDT Gender Identity Not on file Sexual Orientation Not on file Last Filed Vital Signs Vital Sign Reading Time Taken Comments Blood Pressure 113/62 09/06/2024 2:05 PM EST Pulse 77 09/06/2024 2:05 PM EST Temperature 36.6 C (97.9 F) 09/06/2024 12:54 PM EST Respiratory Rate 16 09/06/2024 2:05 PM EST Oxygen Saturation 97% 09/06/2024 2:05 PM EST Inhaled Oxygen Concentration - - Weight - - Height - - Body Mass Index - - Plan of Treatment Upcoming Encounters Date Type Department Care Team (Late st Contact Info) Description 11/11/2025 10:00 AM EST Procedure visit [facility] [id number] 11/11/2025 10:15 AM EST Procedure visit [facility] [id number] 11/11/2025 10:45 AM EST Office Visit [facility] [place] [facility] [id number] Lucas Wong MD [address] [place], [place] [id number] [email or web address] Health Maintenance Due Date Last Done Comments Adult Td,Tdap Booster 1955 LIPID PANEL 1955 DEPRESSION SCREENING 1967 HEPATITIS C SCREENING 12/25/1973 MAMMOGRAM 1995 COLOGUARD 12/25/2000 COLONOSCOPY 12/25/2000 COLORECTAL CANCER SCREENING 12/25/2000 FIT TEST 12/25/2000 FOBT 12/25/2000 SIGMOIDOSCOPY 12/25/2000 VIRTUAL COLONOSCOPY 12/25/2000 PNEUMOCOCCAL VACCINES (50+ years) (1 of 1 - PCV) 12/25/2005 ZOSTER VACCINES (1 of 2) 12/25/2005 OSTEOPOROSIS SCREENING INITIAL (ONE-TIME) 12/25/2020 COVID-19 VACCINE ( season) 2024 08/13/2022, 09/20/2021, 02/26/2021, Additional history exists RSV VACCINE (1 - 1-dose 75+ series) 12/25/2030 SMOKING STATUS SCREENING (Once After 26 Yrs) Completed 10/29/2024 HEPATITIS A VACCINES Aged Out No long er eligible based on patient's age to complete this topic HIB VACCINES Aged Out No longer eligi ble based on patient's age to complete this topic MENINGOCOCCAL VACCINES (ACWY) Aged Out No longer eligible based on patient's age to complete this topic MENINGOCOCCAL VACCINES (B) Aged Out N o longer eligible based on patient's age to complete this topic Medical Devices Implanted Type Area Press Operator Heavy Duty Device Identifier Shelf Expiration Date Model / Serial / Lot Envista Ee 22.5 Implanted:2023 (Quantity not on file) 03/16/2027 [employer] Envista Iol Ee (Ocb) +21.0d- Implanted:2023 (Quantity not on file) 05/16/2027 Insurance MEDICARE PART A & B MEDICARE PART A & B MEDICARE PART A & B MEDICARE PART A & B MEDICARE PART A & B MEDICARE PART A & B MEDICARE PART A & B MEDICARE PART A & B MEDICARE PART A & B BLUE [place]OSS [place] MEDICARE PPO BLUE REPLACEMENT MEDICARE PART A & B Care Teams Ruby Software Developer Relationship Specialty Start Date End Date Marcellus June MD [address] [place] [address] [place] [address] PCP - General Internal Medicine 01/24/23 Additional Source Comments The information contained in this document represents components of the legal health record. It is not the complete legal health record.[facility]
--- OUTSIDE RECORDS SUMMARY | 2025-05-07 12:15 | XMS_ITS | Patient Health Record ---
Author Organization [facility] Address [address] [place] [address] Care Team Providers Care Reforestation Worker Name Role Phone Slade (RETIRED) Marcellus VARGHESE Primary Care Provide r Unavailable Daniel Ortiz Unavailable [phone] Allergies No Known Allergies Reason For Referral [...] Problem Status W/U Status Risk Notes Problem 276919768 Encounter for screening for malignant neoplasm of colon (Z12.11) Active confirmed Problem 984309540 History of adenomatous polyp of colon (Z86.010) Active confirmed Problem Personal history of colonic polyps (Z86.010) Active confirmed Problem Diverticular disease of colon (734834636) Diverticulosis of large intestine without perforation or abscess without bleeding (K57.30) Active confirmed Problem Screening for malignant neoplasm of rectum (491025315) Encounter for screening for malignant neoplasm of rectum (Z12.12) Active confirmed Problem 385140832 History of colon polyps (Z86.010) Active confirmed Problem 294344869672303 Pre-procedural examination (Z01.818) Active confirmed Problem 535705097 Abnormal UGI series (R93.3) Active confirmed Plan Of Treatment Future Test Test Name Order Date UPPER GI ENDOSCOPY 09/14/2016 COLONOSCOPY 09/14/2016 COLONOSCOPY 12/10/2022 Insurance Providers Payer Name Payer Address Payer Phone Subscriber Number Group Number Insured Name Patient Relationship to Insured Coverage Start Date Coverage End Date MEDICARE OF [place] [address] [place] [address] [id number] EVELINA SOMMER Self - patient is the insured Medical (General) History Medical History History ICD Code Bipolar disorder Denies AR,DM,CVA,Lung disease,renal dise ase 2 previous colonoscopies in [place]--most recent was in 2008--2 tubular adenomas Colonoscopy in 02/2017 with me with the r dinesh of a tubular adenoma Surgical History Surgery Date(Month/Year) Cholecystectomy C-sections x3 Tubal ligation Umbilical hernia repair with mesh Left oopherectomy for an ectopic pregnan cy Bariatric surgery with a gas tric sleeve procedure with Dr. Bey in 12/2016. She also had an upper endoscopy with him. Rotator cuff on the right
--- OUTSIDE RECORDS SUMMARY | 2025-05-07 12:16 | XMS_ITS | Patient Health Record ---
Author Organization [facility] Address [address] [place] [address] Care Team Providers Care Parquetry Floor Layer Name Role Phone Marcellus June MD Primary Care Provider Jose R Sanchez Unavailable [phone] Reason For Referral No Information Medications Medication SIG (Take, Route, Frequency, Duration) Notes Start Date End Date Status Multivitamin 1 tablet Orally twice a day Active Calcium + D 1 tablet Orally Twice a day Active Social History Tobacco Use: Social History Observation Description Date Details (start date - stop date) Never Smoker NA - NA Tobacco Use/Smoking Question Answer Notes Are you a: nonsmoker Additional Findings: Tobacco Non-User Current no n-smoker Alcohol Screen Question Answer Notes Did you have a drink containing alcohol in the p ast year? No Points 0 Interpretation Negative Tobacco use other than smoking: Question Answer Notes Are you an other tobacco user? No Plan Of Treatment No Information Insurance Providers Payer Name Payer Address Payer Phone Subscriber Number Group Number Insured Name Patient Relationship to Insured Coverage Start Date Coverage End Date Medicare National Govt Svcs Inc [address] [place] [address] [id number] Stefany Woods Self - patient is the insured Medical (General) History Medical History History ICD Code Measles Mumps Chicken pox Surgical History Surgery Date(Month/Year) bariatric 2016 shoulder surgery- right 2018
[2025-05-28 12:55] VITALS: BMI 28.3
[2025-06-11 10:43] LABS: MANUAL DIFF FLAG NO
[2025-06-11 11:01] LABS: Hematocrit 35.6 % (37.0-47.0); Hemoglobin 11.7 g/dl (12.0-16.0); Imm Gran Abs Auto 0.01 X10*3/uL (0.00-0.03); Imm Gran Pct Auto 0.2 % (0.0-0.4); Lymphocytes Absolute Auto 1.4 X10*3/uL (1.2-4.9); Mean Corpuscular HGB Conc 32.9 g/dl (31.0-35.0); Mean Corpuscular Hemoglobin 30.7 pg (27.0-33.0); Mean Corpuscular Volume 93.4 fL (80.0-98.0); NRBC Abs Auto 0.000 X10*3/uL (0.0-0.012); NRBC Pct Auto 0.0 /100WBC (0.0-0.2); Platelet Count 204 X10*3/uL (160-400); Red Blood Count 3.81 X10*6/uL (4.20-5.50); White Blood Count 4.5 X10*3/uL (4.8-10.8)
[2025-06-11 11:03] LABS: INTERNATIONAL NORM RATIO 1.0 (0.9-1.1); Prothrombin Time 11.1 SEC (10.9-12.4)
[2025-06-11 11:05] LABS: Partial Thromboplastin Time 31.4 SEC (26.7-34.1)
[2025-06-11 11:31] LABS: Alanine Aminotransferase 13 U/L (0-31); Albumin Level 4.5 g/dL (3.5-5.0); Alkaline Phosphatase 67 U/L (39-117); Anion Gap 12 (12-20); Aspartate Amino Transferase 26 U/L (5-31); Blood Urea Nitrogen 14 mg/dL (9-16); Calcium 9.9 mg/dL (8.4-10.2); Carbon Dioxide 25 mmol/L (22-29); Chloride 108 mmol/L (96-108); Creatinine Clr Calc Pharmacy 60.7; Estimated Glomerular Filt Rate > 60; Potassium 4.1 mmol/L (3.3-5.1); Sodium 141 mmol/L (135-145); Total Protein 7.0 g/dL (6.5-8.0)
--- NOTE | 2025-06-14 09:07 | HO.ANESPROP2 ---
Documented by User: Nevin Galdamez NP 06/14/25 09:08 HPI - Anesthesia Eval Consult details Narrative: 69yo F for Panniculectomy s/p gastric sleeve 2016 [facility] Active Problems Active Problems: All Active Problems Excess skin (Acute) Internal derangement of left shoulder (Acute) Overweight (BMI 25.0-29.9) (Acute) S/P laparoscopic sleeve gastrectomy (Acute) Obesity (BMI 30.0-34.9) (Acute) Bipolar disorder (Acute) Tick bite (Acute) Past Medical History Medical History Tick bite Bipolar disorder GERD (gastroesophageal reflux disease) Steatosis, liver HAIM (obstructive sleep apnea) Surgical History Surgical History Hx of cataract extraction H/O repair of rotator cuff H/O gastric sleeve History of left oophorectomy H/O tubal ligation H/O colonoscopy (~01/26/23) S/P laparoscopic hernia repair Hx laparoscopic cholecystectomy H/O section Social History Social History Are you a primary foster care therapist to a significant other at home: No Do you presently have visiting nurse or other home services: No Alcohol intake: never Patient Tobacco Use Status: Never used Tobacco Use of substances other than those prescribed or required for medical reasons: No Have you been hit, kicked, punched, or otherwise hurt by someone within the past year? If so, by whom?: No Are you DNR?: No Advance Directives: No Advance Directives Information Provided: Yes Advance Directives on File: No Patient : No : No Poor oral hygiene: Yes Meds Allergies Allergy/AdvReac Type Severity Reaction Status Date / Time No Known Allergies (No Known Allergy Verified 06/11/25 10:00 Allergies*) Home Medications ?Medication ?Instructions ?Recorded ?Confirmed ?Last Taken ?Type vit C 250 mg-vit E 90 mg-zinc 40 1 tab PO BID 05/28/25 06/18/25 06/17/25 History mg-copper 1 [id number]-[id number] capsule (PreserVision AREDS-2) Exam Height,Weight and Vital Signs: Height 5 ft Weight 65.771 kg Pertinent Lab Results Pertinent Lab Results: Laboratory Tests 06/11/25 06/11/25 10:34 10:42 WBC 4.5 L RBC 3.81 L Hgb 11.7 L Hct 35.6 L MCV 93.4 MCH 30.7 MCHC 32.9 RDW 12.9 Plt Count 204 MPV 10.6 Immature Gran % (Auto) 0.2 Neut % (Auto) 58.1 Lymph % (Auto) 30.1 Harmon % (Auto) 6.5 Eos % (Auto) 4.2 H Baso % (Auto) 0.9 Lymph # (Auto) 1.4 Harmon # (Auto) 0.3 Eos # (Auto) 0.2 Baso # (Auto) 0.0 Abs Immat Gran (auto) 0.01 Absolute Neuts (auto) 2.6 Absolute Nucleated RBC 0.000 Nucleated RBC % (auto) 0.0 PT 11.1 INR 1.0 APTT 31.4 Sodium 141 Potassium 4.1 Chloride 108 Carbon Dioxide 25 Anion Gap 12 BUN 14 Creatinine 0.74 Estim Creat Clear Calc 60.7 Estimated GFR > 60 Random Glucose 93 Calcium 9.9 Total Bilirubin 0.8 AST 26 ALT 13 Alkaline Phosphatase 67 Total Protein 7.0 Albumin 4.5 Blood Type O Positive Antibody Screen NEGATIVE Narrative Narrative: Exercise Stress 2023 Protocol: OLU Max HR: 129 BPM 84% of Pred: 152 BPM Max BP: 140/070 mmHG Max Work Load: 10.4 METS Exercise stress test with exercise 9 min 14 sec of Olu protocol, achieving 84% MPHR, without anginal symptoms, without arrythmia, with normotensive response to exercise, without EKG changes meeting criteria for ischemia. Test reviewed with Dr Sparks. Assessment and Plan Assessment Anesthesia Assessment: Chart Reviewed Documented by User: Gena Willett MD 06/18/25 08:23 PMFSH Active Problems Active Problems: All Active Problems Excess skin (Acute) Internal derangement of left shoulder (Acute) Overweight (BMI 25.0-29.9) (Acute) S/P laparoscopic sleeve gastrectomy (Acute) Obesity (BMI 30.0-34.9) (Acute) Bipolar disorder (Acute) Tick bite (Acute) u Past Medical History Medical History Tick bite Bipolar disorder GERD (gastroesophageal reflux disease) Steatosis, liver HAIM (obstructive sleep apnea) Surgical History Surgical History Hx of cataract extraction H/O repair of rotator cuff H/O gastric sleeve History of left oophorectomy H/O tubal ligation H/O colonoscopy (~01/26/23) S/P laparoscopic hernia repair Hx laparoscopic cholecystectomy H/O section History of Problems with Anesthesia: No Social History Social History Are you a primary foster care therapist to a significant other at home: No Do you presently have visiting nurse or other home services: No Alcohol intake: never Patient Tobacco Use Status: Never used Tobacco Use of substances other than those prescribed or required for medical reasons: No Have you been hit, kicked, punched, or otherwise hurt by someone within the past year? If so, by whom?: No Are you DNR?: No Advance Directives: No Advance Directives Information Provided: Yes Advance Directives on File: No Patient : No : No Poor oral hygiene: Yes Meds Allergies Allergy/AdvReac Type Severity Reaction Status Date / Time No Known Allergies (No Known Allergy Verified 06/11/25 10:00 Allergies*) Home Medications ?Medication ?Instructions ?Recorded ?Confirmed ?Last Taken ?Type vit C 250 mg-vit E 90 mg-zinc 40 1 tab PO BID 05/28/25 06/18/25 06/17/25 History mg-copper 1 bp-jiniid-xirztd capsule (PreserVision AREDS-2) Exam Airway Mallampati Class: II TM Dist: >3cm Neck ROM: Full Partial: Upper Loose/Missing/Broken Teeth: Yes and Upper Heart: RRR Lungs: CTA Assessment and Plan Assessment Anesthesia Assessment: Anesthesia Plan Discussed Final Anesthetic Review History of Problems with Anesthesia: No NPO: Yes ASA Class: II Final Preanesthetic Review: Meds/Allgs Chart Reviewed, Consent Obtained/Reviewed and Anes Risks/Benef Reviewed Patient Risk: Low Procedure Risk: Low Anesthetic Plan Anesthetic Plan: GA Disposition: Standard PACU
[2025-06-18] VITALS (17 sets, daily range): BP systolic 100–149; BP diastolic 48–69; PULSE 66–79; RESP 11–18; TEMP 36–36.8; O2SAT 92–98; BMI 28.6
[2025-06-18] MEDS: Aprepitant 32 MG/4.4 ML VIAL IVPUSH (06:53)
[2025-06-18] MEDS: Lactated Ringers 1,000 ML 100 ML IVCONT (06:55)
--- NOTE | 2025-06-18 07:20 | P.F2F_ITS ---
Service Date Service Date: 06/18/25 Encounter Date of encounter: 06/18/25 Reasons for Services Signs and symptoms assessed: post op panniculectomy Reason for long term: postoperative assessment and/or care Homebound: Leaving the home is medically contraindicated at this time without the asist of a device and/or another person due th the listed conditions above and below. Reason homebound: unable to drive Certification: Based on the above findings, I certify that this patient is confined to the home and needs intermittent long term care, physical therapy and/or speech therapy, or continues to need occupational therapy. The patient is under my care, and I have initiated the establishment of the plan of care. The patient will be followed by a physician who will periodically review the plan of care. Time Spent With Patient Time: Total time managing care of this patient today 15 minutes.
--- NOTE | 2025-06-18 07:32 | MHC.SHP ---
Pre-Procedural Eval Section A - 24 Hr Update-Section A only Date of Service: 06/18/25 The patient is an INPATIENT: No The patient has been examined within 24 hours of the surgical procedure. The History & Physical has been completed within 30 days and I have reviewed it.: Yes Section B - Complete if H&P > 30 days Chief Complaint: Excessive and redundant skin and subcutaneous tiss Relevant Family History (Specify if Yes): No Relevant Social History: None Present Medications: None Medical History: No relevant PMH History of Previous Operations: Relevant previous surgery/procedure and date(s) (Lap sleeve gastrectomy, laparoscopic ventral hernia repair with mesh) Allergies: Allergies Allergy/AdvReac Type Severity Reaction Status Date / Time No Known Allergies (No Known Allergy Verified 06/11/25 10:00 Allergies*) Review of Systems Sugical H&P ROS: Negative: Constitution, Cardiovascular, Respiratory, Neurological, Psychiatric, Hem-Onc, Allergic/Immunologic, Gastrointestinal, Genitourinary, Musculoskeletal, Integumentary, Endocrine and Eyes/Ears/Nose/Throat Exam Surgical H&P Exam: Normal: HEENT, Normal: Heart, Normal: Lungs, Normal: Extremities, Normal: Skin and Normal: Neurological and Not Evaluated: Abdomen (excess skin) Plan Diagnosis/Plan: Unchanged I have reviewed the history and physical and performed a pertinent physical examination on my patient. No changes have occurred unless specified. Time Spent With Patient Time: Total time managing care of this patient today ____ minutes.
--- NOTE | 2025-06-18 07:33 | P.BOP_ITS ---
Brief Operative Note Date of Service: 06/18/25 Pre-op diagnosis: Excess skin Procedure: PROCEDURE: Panniculectomy with bilateral subcutaneous fat flaps, partial omentectomy, Incisional vental hernia repair x5 INDICATION: This a 69 year old female who underwent laparoscopic sleeve gastrectomy on 12/23/2016. She had an excellent result achieving a BMI of 28.1 kg/m2 with a total weight loss of 51.8lbs, or 26.2% of her TBWL. As a result, she has developed panniculitis which has not resolved despite continuous use of clotrimazole ointment as well as skin irritation. On exam she has extreme skin laxity due to massive weight loss, with the abdominal pannus completely hanging 4cm below the pubis. Panniculectomy was recommended. We discussed the two options for the panniculectomy of using a combined vertical and horizontal incisions or just a horizontal (bikini) incision. It was my recommendation to do only horizontal incision based on her body habitus and skin laxity. The patient agreed with this. Risks and complications were discussed with the patient including bleeding, infection, umbilical loss, flap necrosis, asymmetry, dehiscence, seroma, VTE. The patient understood the risks and was in agreement to proceed with surgery. PROCEDURE: The incisions were appropriately marked at the preop area with the patient standing and laying down. After induction of general anesthesia a Alfredo catheter and pneumatic compression devices were placed. The patient was prepped and draped in the usual sterile manner and the incisions were marked again and confirmed. The skin was infiltrated with lidocaine and epinephrine. The #10 blade scalpel was used for the large incisions and the #15 blade scalpel for the umbilicus. Cautery was used to divide the subcutaneous tissues until the fascia was identified. Then I used the cautery to separate the pannus from the fascia. The inferior incision was made initially and I mobilized the flap for a several centimeters cephalad to the umbilicus. The umbilicus was incised circumferentially and detached from the surrounding tissues all the way to the fascia while its stalk was preserved. The patient was noted to have 5 separate ventral hernia repairs. Specifically, the was one near the left groin and one at the midline near the pubic area. There was also another hernia just inferior to the umbilicus as well as a larger hernia with incarcerated omentum cephalad to the umbilicus. For this one, the hernia sac was opened. A partial omentectomy was performed ligating the divided omentum with polysorb ties. The remaining of the omentum was pushed back in the abdomen. All these four hernias were closed with several interrupted #0 Ethibond sutures. At that point I decided to excise the umbilicus and its stalk was ligated with an Ethibond tie. I had told the patient that this is likely as the patient had two umbilical hernia repairs and at the second a mesh was placed. The stalk of the umbilicus appeared to have been compromised at previous repairs. In addition, there was a significant weakness at the midline between the rectus abdominus muscles. Once the umbilicus was excised the area was reinforced with several interrupted #0 Ethibond sutures. With the patient in reflex position I confirmed that the skin flaps were appropriate and would allow for the tissues to come together with reasonable tension. At that point a horizontal incision was made 4 cm above the umbilicus. #10 blade was used for the skin, cautery for the dermis and for the remaining tissues. A subcutaneous fat flap was raised from the upper skin flap in order to fill the space under the skin and support the closure of the two flaps. In addition the inferior flap was mobilized caudally for a few centimeters to create a space for the subcutaneous fat flap as well as relieve tension from the closure. A circumferential incision was made at the area where the umbilicus would be re-implanted. The umbilicus was appropriately oriented and was delivered through the defect and was secured in place with a Alabaster. No bleeding was noted anywhere. One JOSSY drain was placed from the left corner of the horizontal incision across the wound and was secured in place with a silk suture. The subcutaneous fat flap was secured under the inferior flap with several interrupted 3.0 Monocryl sutures. The two flaps were brought together and were attached at the midline of the horizontal incision with a #3.0 Monocryl suture. At that point the umbilicus was properly oriented and was re-approximated to the skin with 8 interrupted 3.0 Monocryl sutures. In a similar fashion the skin flaps were re-approximated with multiple 3.0 Monocryl sutures. The skin was closed in all incisions and umbilicus with 4.0 Monocryl sutures. Steri-strips, xeroform gauzes and gauzes were used to cover the incisions. An abdominal binder was also placed. The was awaken and was transferred to the recover room in a stable condition. I was present and performed the entire procedure. Venu Thorpe was the commercial lines assistant. Almas Bey MD, PhD, FACS Surgeon: Brock Bey MD Anesthesia: GETA and local Was an Borough Coordinator used for this Procedure?: No Borough Coordinator: Babar Thorpe Estimated blood loss (mL): 10 IV fluids (mL): 1,700 Urine output (mL): 0 (No Alfredo to record output) Pathology: other (1) abdominal pannus, 2) Umbilicus, 3) Omentum) Condition: stable Disposition: PACU
--- NOTE | 2025-06-18 11:30 | P.DS_ITS ---
DS: Providers Provider Date of Service: 06/19/25 Date of discharge: 06/19/25 Primary care physician: JERARDO Manuel DS: Summary Hospital Course Hospital Course: ADMITTING DIAGNOSIS: panniculitis, excess skin, recurrent ventral hernia ? DISCHARGE DIAGNOSIS: same, s/p panniculectomy and repair of recurrent ventral hernia x 5 ? PAST SURGICAL HISTORY: ventral hernia repair, laparoscopic LSG, cesarian section ? PROCEDURE: upper endoscopy, laparoscopic sleeve gastrectomy and repair of diaphragmatic hernia ? DISCHARGE SUMMARY: ? History of Present Illness: ? The patient is a?69 year-old woman with a BMI of?28.6 kg/m2 and associated co- morbidities as described above. The patient had extensive work-up, and was electively scheduled for panniculectomy. Risks and complications of the surgery were discussed with the patient in advance, particularly the possibility of , pulmonary embolism, anastomotic leak, bleeding, bowel injury, GERD, cardiac, renal or pulmonary complications. The patient understood all the risks and was in agreement with the surgical plan. ? Hospital Course: ? The patient underwent an uneventful panniculectomy and repair of recurrent ventral hernia x 5 on the day of admission. Postoperatively, the patient was transferred to the surgical floor. The patient received IV Acetaminophen and IV dilaudid for pain control. Patient was started on bariatric phase 3 diet POD #0. On postoperative day one, the patient was feeling well without nausea, vomiting, fevers, or tachycardia. The patient had some mild incisional pain and the abdomen was soft. ? On the morning of postoperative day one, the patient was continued on 1 ounce of water or ice every 15 min. During the day, the patient did fairly well, having some incisional pain, but able to ambulate adequately and to tolerate liquids well. ? Since the patient is doing well, we decided that the patient was ready to be discharged. The patient was given instructions to follow-up with me next week and to call my office for any fever over 101, persistent abdominal pain, nausea, vomiting, GERD, symptoms of DVT such as calf tenderness, or leg swelling, or pulmonary embolism such as chest pain or shortness of breath. The patient was also instructed to drink 40-60 ounces of liquids per day using the 1-ounce cups. The patient had been given prescriptions for Tylenol for pain, Zofran prn for nausea, and pantoprazole and carafate previously. The patient was encouraged to ambulate and use the incentive spirometer. The patient was allowed to shower, but no baths, and encouraged to stay active at home. All of these instructions were given to the patient personally. All questions were answered and the patient understood all instructions, the instructions were also given to the patient in print. Time Attestation Total time managing care of this patient today: 25 mintues. Discharge Coordination Time (in mins): 25 Quality: Safe Use of Opioids Does Pt have an Active Cancer Diagnosis on the Problem List?: No Quality: Stroke Does the patient have a stroke diagnosis?: No Physical Exam Vital Signs: Vital Signs: Last Vital Signs Temp 98 F 06/18/25 11:25 Pulse 78 06/18/25 11:30 Resp 11 L 06/18/25 11:30 BP 126/48 L 06/18/25 11:30 Pulse Ox 95 06/18/25 11:30 O2 Del Method Room Air 06/18/25 11:30 BMI result Body Mass Index 28.6 DS: Data Data Completed and Pending Pending studies at discharge: Pending at discharge 06/18/25 10:34 Surgical [PTH] Routine Discharge Plan Discharge Patient Disposition: Home, Self-Care Referrals: Shirlene Terry PA [Primary Care Provider, Hospitalist] - 1 Week Discharge Medications: No Action PreserVision AREDS-2 250-90-40-1 mg Capsule 1 tab PO BID Bariatric Multivitamins 45 mg iron- 800 mcg-120 mcg capsule 1 cap PO DAILY Qty: 30 0RF clotrimazole [Antifungal (clotrimazole)] 1 % cream 1 appl topical BID Qty: 45 3RF cephalexin 500 mg capsule 500 mg PO Q12H Qty: 60 2RF docusate sodium [Colace] 100 mg capsule 100 mg PO DAILY Qty: 90 0RF ondansetron 4 mg tablet,disintegrating 4 mg PO Q12H Qty: 20 0RF calcium citrate-vitamin D3 250 mg-5 mcg (200 unit) tablet 2 tab PO BID Qty: 120 11RF Discharge Orders: Discharge Order (Routine); Ordered 06/19/25 Ordered By: Brock Bey Activity on Discharge: No heavy lifting Activity Restrictions/Additional Instructions: 1) Start Keflex antibiotic 2) No showers. Only sponge baths 3) Avoid any tension at the abdomen and always have help getting up. Keep knees slighly bent and upper torso flexed forward. No abdominal stretching 4) Take 1 tab of Colace and one tablespoon of Metamucil daily Diet: 3 Celebrate protein shakes with 1 scoop in 8oz of almond milk each at 7am- 9am, 10am-12pm, 1pm-3pm and 4pm-6pm one and one Celebrate protein bar until you have a bowel movement. Once you have a bowel movement please change diet plan to Celebrate shake with HALF scoop at 7am-9am, Celebrate protein bar at 10am-12pm, Celebrate shake with HALF scoop in 8oz almond milk at 1pm-3pm, Celebrate protein bar at 4pm-6pm and one meal with 4 forks of meat and 4 forks of vegetables or salad at 7pm. Do not stop or reduce shakes and bars. They are very important for your healing 5) Change dressings daily and send pictures to Dr. Bey. Replace loose steri-strips and xeroform gauze along the incisions.On top of the xeroform gauzes place 4x4 dressings and paper tape 6) Supplies needed: Kerlex rolls, 4x4 dressings, xeroform gauze, 1/2'' steri- strips, paper tape. You will need to use several of the above supplies on a daily basis. 7) Avoid heavy lifting for 3 weeks 8) Take Tylenol 500mg every 4 hours, around the clock for the next 3-4 days. If pain has improved you may slowly reduce its frequency 9) Avoid aspirin, Motrin, Aleve, Advil, Naproxyn, Ibuprofen for 2 weeks 7) Call Dr. Bey at [phone] for fever >101F, persistent incisional pain,, discharge from any of the incisions, swelling, redness, shortness of breath, calf pain 8) A visiting nurse will be seeing you daily to help with dressing changes 9) Measure accurately the drain output and record it in a paper for 24 hour periods (7am to 7am). Please bring that sheet with you at your next office appointment.? Print Language: South African
--- NOTE | 2025-06-18 12:07 | P.PNGS_ITS ---
Subjective Subjective Date of Service: 06/19/25 Interval history: Feels well. Mild incisional pain. She is tolerating phase 3 bariatric diet Physical Exam 2 Vital Signs: Vital Signs: Last Vital Signs Temp 98 F 06/18/25 11:25 Pulse 73 06/18/25 12:05 Resp 12 06/18/25 12:05 BP 119/52 L 06/18/25 12:05 Pulse Ox 95 06/18/25 12:05 O2 Del Method Room Air 06/18/25 12:05 BMI result Body Mass Index 28.6 GI: Inspection: Yes normal to inspection, Yes incision (clean, dry and intact) and Yes other (drain with serosanguinous fluid) Palpation (GI): Soft to palpation Extrem: Right lower extremity: normal to inspection (no calf tenderness) L eft lower extremity: normal to inspection (no calf tenderness) Objective Data Active Medications Albuterol/Ipratropium (Albuterol/Iprat 2.5/0.5mg 3 Ml Ampul.Neb) 3 ml INHALE ONCE PRN PRN Reason: Bronchospasm/wheezing Stop: 06/18/25 14:24 Fentanyl (Fentanyl Citrate/Pf 100 Mcg/2 Ml Vial) 25 mcg IVPUSH Q5M PRN PRN Reason: Pain, Moderate to Severe (Pain Scale 4-10) Stop: 06/18/25 14:23 Last Admin: 06/18/25 12:00 Dose: 25 mcg Documented By: LAMINE Haloperidol Lactate (Haloperidol Lactate 5 Mg/Ml Vial) 1 mg IVPUSH ONCE PRN PRN Reason: intractable nausea Stop: 06/18/25 14:24 Hydromorphone HCl (Hydromorphone Hcl 0.5 Mg/0.5 Ml Syringe) 0.25 mg IVPUSH Q5M PRN PRN Reason: Pain, Moderate to Severe (Pain Scale 4-10) Stop: 06/18/25 14:23 Lactated Ringer's (Lr) 1,000 mls @ 100 mls/hr IVCONT .Q10H BRISSA Naloxone HCl (Naloxone Hcl 0.4 Mg/Ml Vial) 0.04 mg IVPUSH Q5M PRN PRN Reason: Excessive sedation or RR < 8 Ondansetron HCl (Ondansetron Hcl 4 Mg/2 Ml Vial) 4 mg IVPUSH ONCE PRN PRN Reason: Nausea and Vomiting Stop: 06/18/25 14:24 Oxycodone HCl (Oxycodone Hcl Immed Release 5 Mg Tablet) 5 mg PO ONCE PRN PRN Reason: Pain, Moderate(Pain Scale 4-6) if no IV Access Stop: 06/18/25 14:23 Labs 06/19/25 06:27 06/19/25 06:27 Procedures Date of Service Date of Service: 06/19/25 Progress Note: A&P Assessment and plan (1) S/P repair of recurrent ventral hernia: Status: Acute Assessment and Plan: s/p panniculectomy, omphalectomy and ventral hernia repair x5 Doing well Will check am labs and if OK the patient will be discharged home Time Spent With Patient Time: Total time managing care of this patient today ____ minutes. Quality Stroke Does the patient have a stroke diagnosis?: No VTE Prior VTE?: No VTE Risk Level:: Surgical - moderate VTE Device Contraindication: N/A - Device Ordered VTE Drug Contraindication: Treatment Not Indicated
--- NOTE | 2025-06-18 14:48 | PHA.MEDREC ---
Pharmacy Consult ? Medication Reconciliation Pharmacy has completed the medication reconciliation. Reviewed med rec done by nursing, matches claims
[2025-06-18 14:54] LABS: Hematocrit 35.5 % (37.0-47.0); Hemoglobin 12.0 g/dl (12.0-16.0)
[2025-06-18] MEDS: Lactated Ringers 1,000 ML 125 ML IVCONT ×2 (14:57→23:02)
[2025-06-18 15:08] LABS: Anion Gap 11 (12-20); Blood Urea Nitrogen 13 mg/dL (9-16); Calcium 9.3 mg/dL (8.4-10.2); Carbon Dioxide 26 mmol/L (22-29); Chloride 109 mmol/L (96-108); Creatinine Clr Calc Pharmacy 72.8; Estimated Glomerular Filt Rate > 60; Potassium 4.3 mmol/L (3.3-5.1); Sodium 142 mmol/L (135-145)
[2025-06-19 03:18] VITALS: BP 111/53; PULSE 69; RESP 18; TEMP 36.5; O2SAT 93
[2025-06-19] MEDS: Lactated Ringers 1,000 ML 125 ML IVCONT (06:22)
[2025-06-19 06:38] LABS: MANUAL DIFF FLAG NO
[2025-06-19 06:42] LABS: Hematocrit 30.0 % (37.0-47.0); Hemoglobin 10.0 g/dl (12.0-16.0); Imm Gran Abs Auto 0.03 X10*3/uL (0.00-0.03); Imm Gran Pct Auto 0.4 % (0.0-0.4); Lymphocytes Absolute Auto 1.5 X10*3/uL (1.2-4.9); Mean Corpuscular HGB Conc 33.3 g/dl (31.0-35.0); Mean Corpuscular Hemoglobin 30.7 pg (27.0-33.0); Mean Corpuscular Volume 92.0 fL (80.0-98.0); NRBC Abs Auto 0.000 X10*3/uL (0.0-0.012); NRBC Pct Auto 0.0 /100WBC (0.0-0.2); Platelet Count 163 X10*3/uL (160-400); Red Blood Count 3.26 X10*6/uL (4.20-5.50); White Blood Count 6.8 X10*3/uL (4.8-10.8)
[2025-06-19 06:55] LABS: Anion Gap 10 (12-20); Blood Urea Nitrogen 12 mg/dL (9-16); Calcium 8.6 mg/dL (8.4-10.2); Carbon Dioxide 26 mmol/L (22-29); Chloride 109 mmol/L (96-108); Creatinine Clr Calc Pharmacy 79.2; Estimated Glomerular Filt Rate > 60; Potassium 3.6 mmol/L (3.3-5.1); Sodium 141 mmol/L (135-145)
[2025-06-19 07:30] VITALS: BP 100/49; PULSE 69; RESP 16; TEMP 37; O2SAT 95
--- NOTE | 2025-06-19 08:23 | HO.POSTANES ---
Post Anesthesia Evaluation Post Anesthesia Evaluation Date of Service: 06/19/25 Vital Signs: Vital Signs Temp Pulse Resp BP Pulse Ox O2 Del Method 06/19/25 07:30 98.6 F 69 16 100/49 L 95 Room Air 06/19/25 03:18 97.7 F 69 18 111/53 L 93 Room Air 06/18/25 23:30 98.2 F 67 18 100/50 L 92 Room Air Anesthesia: General Mental Status: Awake Pain Control: Satisfactory Nausea/Vomiting: None Hydration: Adequate Anesthesia-Related Issues: No Anes. Related Issues
--- NOTE | 2025-06-19 09:02 | MHC.CM.PN ---
Patient lives in a home w/ her partner. Functionally independent. Denies use of DME or services. HCP on file. PCP JERARDO Manuel DP: Medically cleared for dc home w/ new [facility] for SN (wound care, JOSSY drain care). Patient/PA are aware the VNA does not do daily visits. 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 [facility]NA aware. Friend will transport home.
== END 2025-06-19 09:06 | disposition home health service (06) ==
LOC: HO.SSS 07:39 → HO.S3 14:24
PROVIDERS: Physician Assistant Surgical; PCP Physician Assistant; Visit Provider Surgery
PROC: 0JB80ZZ Excision of Abdomen Subcutaneous Tissue and Fascia, Open Approach (ICD-10-PCS; CPT 15830; principal; 2025-06-18 07:30)
DX: L98.7 Excessive and redundant skin and subcutaneous tissue (principal); M79.3 Panniculitis, unspecified; E65 Localized adiposity; K43.0 Incisional hernia with obstruction, without gangrene; K43.2 Incisional hernia without obstruction or gangrene; K59.00 Constipation, unspecified; R11.0 Nausea; L30.8 Other specified dermatitis; F31.9 Bipolar disorder, unspecified; Z87.19 Personal history of other diseases of the digestive system; K21.9 Gastro-esophageal reflux disease without esophagitis; K76.0 Fatty (change of) liver, not elsewhere classified; G47.33 Obstructive sleep apnea (adult) (pediatric); Z90.49 Acquired absence of other specified parts of digestive tract; Z98.84 Bariatric surgery status; Z98.890 Other specified postprocedural states
CPT/HCPCS: 49594; 15830; 36415; 80048; 80053; 85014; 85018; 85025; 85610; 85730; 86850; 86900; 86901; 88302; 88304; C9145; J0131; J0690; J1100; J2003; J2004; J2250; J2405; J2470; J2704; J3010; J3374; J7120

== ENCOUNTER → 2025-06-18 06:03 | Outpatient (BNV) | payer MEDICARE, SELFPAY | PROVIDERS: PCP Physician Assistant; Visit Provider Physician Assistant Surgical | DX: L98.7 Excessive and redundant skin and subcutaneous tissue (principal) | CPT/HCPCS: 15830; G0180 ==

== ENCOUNTER 2025-06-26 11:09 | Outpatient (AMB) | payer MEDICARE, SELFPAY ==
[2025-06-26 11:50] VITALS: BP 125/72; PULSE 86; TEMP 36.9; O2SAT 95
--- NOTE | 2025-06-26 11:50 | MHC.OFFVISWM ---
VS Expanded 06/26/25 11:50 BP 125/72 Blood Pressure Location Rt brachial Blood Pressure Position Sitting Pulse 86 Pulse Source Pulse Oximeter Temp 98.4 F Temperature Source Temporal Artery Scan Pulse Oximetry 95 Oxygen Delivery Method Room Air Intake Visit Reasons: (OV) s/p Panniculectomy 06/18/25 Allergies No Known Allergies (No Known Allergies*) Allergy (Verified 06/11/25 10:00) Medication List - Last Reconciled 06/26/25 by JERARDO Lauren calcium citrate-vitamin D3 250 mg-5 mcg (200 unit) 2 tabs PO BID cephalexin 500 mg PO Q12H docusate sodium (Colace) 100 mg PO DAILY zrywcyaylsac-dpn-wase-FA-vit K 45 mg iron- 800 mcg-120 mcg (Bariatric Multivitamins) 1 cap PO DAILY ondansetron 4 mg PO Q12H vit C,N-Ek-vlyil-lutein-zeaxan 250-90-40-1 mg (PreserVision AREDS-2) 1 tab PO BID HPI Comments Details: Pt is 1 week s/p panniculectomy with bilateral subcutaneous fat flaps, partial omentectomy, Incisional vental hernia repair x5. No fevers at home. Taking abx although reports some loose stools. Following meal plan per Dr. Cortez Drain output averaging 40cc/day. [facility] Medical History Tick bite Bipolar disorder GERD (gastroesophageal reflux disease) Steatosis, liver HAIM (obstructive sleep apnea) Surgical History Hx of cataract extraction H/O repair of rotator cuff H/O gastric sleeve History of left oophorectomy H/O tubal ligation H/O colonoscopy (~01/26/23) S/P laparoscopic hernia repair Hx laparoscopic cholecystectomy H/O section Social History Household Members: Significant Other Housing: Apartment Are you a primary life care planner to a significant other at home: No Do you presently have visiting nurse or other home services: No Alcohol intake: never Comment: tolerable Patient Tobacco Use Status: Never used Tobacco Physical Exam Vital Signs: Last Vital Signs Temp 98.4 F 06/26/25 11:50 Pulse 86 06/26/25 11:50 BP 125/72 06/26/25 11:50 Pulse Ox 95 06/26/25 11:50 Oxygen Delivery Method Room Air 06/26/25 11:50 Const General: cooperative, comfortable and no acute distress Orientation/consciousness: patient oriented x3 GI Other: soft, appropriate minimal tenderness, incision c/d/i with steri strips in place, no drainage, no erythema, drain output sanguinous Neuro General: patient oriented x3 Assessment & Plan Assessment & Plan (1) S/P laparoscopic sleeve gastrectomy: Code(s): Z98.84 - Bariatric surgery status Category: Surgical (2) S/P panniculectomy: Code(s): Z98.890 - Other specified postprocedural states Category: Surgical (3) S/P repair of recurrent ventral hernia: Code(s): Z98.890 - Other specified postprocedural states; Z87.19 - Personal history of other diseases of the digestive system Category: Surgical (4) Overweight (BMI 25.0-29.9): Code(s): E66.3 - Overweight Category: Medical Plan Continue high protein diet. ABX keflex 500 BID x 2 weeks, extended as needed?(at least until drain comes out plus 1 week).? Drain out after consistently 20 mL or less daily.? Abdominal binder at all times except for care x 1 month?MINIMUM. If there are concerns longer.? No driving?until drain out.? No walking outside or exercise for 6 weeks minimum. Assistance getting up for 4 weeks minimum.?No lifting greater than?10 pounds x 2 months and no abdominal exercises x 3 months. RTC 1 week.
--- OUTSIDE RECORDS SUMMARY | 2025-06-26 14:19 | XMS_ITS | Patient Health Record ---
Author Organization [facility] Address [address] [place] [address] Care Team Providers Care Lens Block Gauger Name Role Phone Slade (RETIRED) Marcellus VARGHESE Primary Care Provide r Unavailable Daniel Ortiz Unavailable [phone] Allergies No Known Allergies Reason For Referral [...] Problem Status W/U Status Risk Notes Problem [id number] Encounter for screening for malignant neoplasm of colon (Z12.11) Active confirmed Problem 467506527 History of adenomatous polyp of colon (Z86.010) Active confirmed Problem History of polyp of colon (situation) (735178311) Personal history of colonic polyps (Z86.010) Active confirmed Problem Diverticular disease of colon (279150948) Diverticulosis of large intestine without perforation or abscess without bleeding (K57.30) Active confirmed Problem Screening for malignant neoplasm of rectum (267791769) Encounter for screening for malignant neoplasm of rectum (Z12.12) Active confirmed Problem 064600310 History of colon polyps (Z86.010) Active confirmed Problem 598483513398576 Pre-procedural examination (Z01.818) Active confirmed Problem 164862390 Abnormal UGI series (R93.3) Active confirmed Plan Of Treatment Future Test Test Name Order Date UPPER GI ENDOSCOPY 09/14/2016 COLONOSCOPY 09/14/2016 COLONOSCOPY 12/10/2022 Insurance Providers Payer Name Payer Address Payer Phone Subscriber Number Group Number Insured Name Patient Relationship to Insured Coverage Start Date Coverage End Date [place] [address] [place] [address] [phone] [id number] EVELINA SOMMER Self - patient is the insured Medical (General) History Medical History History ICD Code Bipolar disorder Denies [place],DM,CVA,Lung disease,renal dise ase 2 previous colonoscopies in [place]--most recent was in 2008--2 tubular adenomas Colonoscopy [...]
--- OUTSIDE RECORDS SUMMARY | 2025-06-26 14:19 | XMS_ITS | Clinical Summary ---
Author Organization [facility] Address [address] [place], [place] [id number] Phone Care Team Providers Care Cornetist Name Role Phone Marcellus June MD Primary [...] AM EST Procedure visit [facility] [id number] 11/11/2025 10:15 AM EST Procedure visit [facility] [id number] 11/11/2025 10:45 AM EST Office Visit [facility] [place] [id number] Lucas Wong MD [address] [place], [place] [id number] [email or web address] Health Maintenance Due Date Last Done Comments Adult Td,Tdap Booster 1955 LIPID PANEL 1955 DEPRESSION SCREENING 1967 HEPATITIS C SCREENING 12/25/1973 MAMMOGRAM 1995 COLOGUARD 12/25/2000 COLONOSCOPY 12/25/2000 COLORECTAL CANCER SCREENING 12/25/2000 FIT TEST 12/25/2000 FOBT 12/25/2000 SIGMOIDOSCOPY 12/25/2000 VIRTUAL COLONOSCOPY 12/25/2000 PNEUMOCOCCAL VACCINES (50+ years) (1 of 1 - PCV) 12/25/2005 ZOSTER VACCINES (1 of 2) 12/25/2005 OSTEOPOROSIS SCREENING INITIAL (ONE-TIME) 12/25/2020 INFLUENZA VACCINE (#1) 2025 COVID-19 VACCINE ( season) 2025 08/13/2022, 09/20/2021, 02/26/2021, Additional history exists RSV [...] this topic Medical Devices Implanted Type Area Manager Of Housekeeping Device Identifier Shelf Expiration Date Model / Serial / Lot Envista Ee 22.5 Implanted:2023 (Quantity not on file) 03/16/2027 [employer] Envista Iol Ee (Ocb) +21.0d- 4 Implanted:2023 (Quantity not on file) 05/16/2027 [place] [id number] MEDICARE PART A & B MEDICARE PART A & B MEDICARE PART A & B MEDICARE PART A & B MEDICARE PART A & B MEDICARE PART A & B MEDICARE PART A & B MEDICARE PART A & B MEDICARE PART A & [place] BL[place] MED[place] BLUE REPLACEMENT MEDICARE PART A & B Care Teams Cornetist Relationship Specialty Start Date End Date Marcellus June MD [address] [place] [address] [place] [address] PCP - General Internal Medicine 01/24/23 Additional Source Comments The information contained in this document represents components of the legal health record. It is not the complete legal health record.[facility]
--- OUTSIDE RECORDS SUMMARY | 2025-06-26 14:19 | XMS_ITS | Patient Health Record ---
Author Organization [facility] Address [address] [place] [address] Care Team Providers Care Aquatic Laborer Name Role Phone Marcellus June MD Primary Care Provider Jose R Sanchez Unavailable [phone] Reason For Referral No Information Medications Medication [...] Inc [address] [place] [address] [id number] Stefany Woods Self - patient is the insured Medical (General) History Medical History History ICD Code Measles Mumps Chicken pox Surgical History Surgery Date(Month/Year) bariatric 2016 shoulder surgery- right 2018
== END 2025-06-26 12:08 | disposition home or self-care (01) ==
LOC: HO.HBS 11:09
PROVIDERS: PCP Internal Medicine; Visit Provider Physician Assistant Surgical
DX: E66.3 Overweight (principal); Z68.28 Body mass index [BMI] 28.0-28.9, adult; Z98.84 Bariatric surgery status; Z98.890 Other specified postprocedural states; Z87.19 Personal history of other diseases of the digestive system
CPT/HCPCS: 99024

== ENCOUNTER → 2025-06-26 11:09 | Outpatient (BNVA) | payer MEDICARE, SELFPAY | PROVIDERS: PCP Internal Medicine; Visit Provider Physician Assistant Surgical | DX: E66.3 Overweight (principal); Z98.84 Bariatric surgery status; Z98.890 Other specified postprocedural states | CPT/HCPCS: 99212 ==

== ENCOUNTER 2025-07-03 10:25 | Outpatient (AMB) | payer MEDICARE, SELFPAY ==
--- NOTE | 2025-07-03 10:32 | MHC.OFFVISWM ---
VS Expanded 07/03/25 10:39 BP 112/61 Blood Pressure Location Rt brachial Blood Pressure Position Sitting Pulse 78 Pulse Source Pulse Oximeter Temp 98.1 F Temperature Source Temporal Artery Scan Pulse Oximetry 96 Oxygen Delivery Method Room Air Intake Visit Reasons: (OV) s/p Panniculectomy 06/18/25 Allergies No Known Allergies (No Known Allergies*) Allergy (Verified 07/03/25 10:40) Medication List - Last Reconciled 07/03/25 by JERARDO Lauren calcium citrate-vitamin D3 250 mg-5 mcg (200 unit) 2 tabs PO BID cephalexin 500 mg PO Q12H docusate sodium (Colace) 100 mg PO DAILY aiyvqlbsmrtx-uoa-eabn-FA-vit K 45 mg iron- 800 mcg-120 mcg (Bariatric Multivitamins) 1 cap PO DAILY ondansetron 4 mg PO Q12H vit C,V-Qt-bseim-lutein-zeaxan 250-90-40-1 mg (PreserVision AREDS-2) 1 tab PO BID HPI Comments Details: Pt is 2 weeks s/p panniculectomy with bilateral subcutaneous fat flaps, partial omentectomy, incisional vental hernia repair x5. No fevers at home. Taking abx although reports some loose stools. Following meal plan per Dr. Cortez Drain output averaging 20-30cc/day. [facility] Medical History (Updated 06/27/25 @ 00:01 by Pasquale Forbes) Tick bite Bipolar disorder GERD (gastroesophageal reflux disease) Steatosis, liver HAIM (obstructive sleep apnea) Surgical History (Updated 07/03/25 @ 10:40 by Tatyana Turner CMA) S/P panniculectomy Hx of cataract extraction H/O repair of rotator cuff H/O gastric sleeve History of left oophorectomy H/O tubal ligation H/O colonoscopy (~01/26/23) S/P laparoscopic hernia repair Hx laparoscopic cholecystectomy H/O section Social History Household Members: Significant Other Housing: Apartment Are you a primary director of critical care to a significant other at home: No Do you presently have visiting nurse or other home services: No Alcohol intake: never Comment: tolerable Patient Tobacco Use Status: Never used Tobacco Physical Exam Const General: cooperative, comfortable and no acute distress Orientation/consciousness: patient oriented x3 GI Other: soft, nontender, nondistended, pannciulectomy incision c/d/i with serosang drain output Neuro General: patient oriented x3 Assessment & Plan Assessment & Plan (1) S/P panniculectomy: Code(s): Z98.890 - Other specified postprocedural states Category: Medical (2) S/P repair of recurrent ventral hernia: Code(s): Z98.890 - Other specified postprocedural states; Z87.19 - Personal history of other diseases of the digestive system Category: Medical (3) S/P laparoscopic sleeve gastrectomy: Code(s): Z98.84 - Bariatric surgery status Category: Medical (4) Overweight (BMI 25.0-29.9): Code(s): E66.3 - Overweight Category: Medical Plan Continue high protein diet. ABX keflex 500 BID x 2 weeks, extended as needed?(at least until drain comes out plus 1 week).? Pt may use Imodium to help with antibiotic associated diarrhea. Drain out after consistently 20 mL or less daily.? Abdominal binder at all times except for care x 1 month?MINIMUM. If there are concerns longer.? No driving?until drain out.? No walking outside or exercise for 6 weeks minimum. Walking in the house after 1st appt if we are satisfied with progress. Assistance getting up for 4 weeks minimum.?No lifting greater than?10 pounds x 2 months and no abdominal exercises x 3 months. RTC 1 week.
[2025-07-03 10:39] VITALS: BP 112/61; PULSE 78; TEMP 36.7; O2SAT 96
--- OUTSIDE RECORDS SUMMARY | 2025-07-03 12:46 | XMS_ITS | Clinical Summary ---
Author Organization [facility] Address [address] [place], [place] [id number] Phone Care Team Providers Care Carburizer Name Role Phone Marcellus June MD Primary [...] AM EST Procedure visit [facility] [id number] 11/11/2025 10:15 AM EST Procedure visit [facility] [id number] 11/11/2025 10:45 AM EST Office Visit [facility] [place] [id number] Lucas Wong MD [address] [place], [place] [id number] [email or web address] Health Maintenance Due Date Last Done Comments [...] this topic Medical Devices Implanted Type Area Salvager Helper Device Identifier Shelf Expiration Date Model / Serial / Lot Envista Ee 22.5 Implanted:2023 (Quantity not on file) 03/16/2027 [employer] Envista Iol Ee (Ocb) +21.0d- 4 Implanted:2023 (Quantity not on file) 05/16/2027 [place] [id number] MEDICARE PART A & B MEDICARE PART A & B MEDICARE PART A & B MEDICARE PART A & B MEDICARE PART A & B MEDICARE PART A & B MEDICARE PART A & B MEDICARE PART A & B MEDICARE PART A & [place] BL[place] MED[place]ARE PPO BLUE REPLACEMENT MEDICARE PART A & B Care Teams Carburizer Relationship Specialty Start Date End Date Marcellus June MD [address] [place] [address] [place] [address] PCP - General Internal Medicine 01/24/23 Additional Source Comments The information contained in this document represents components of the legal health record. It is not the complete legal health record.[facility]
--- OUTSIDE RECORDS SUMMARY | 2025-07-03 12:46 | XMS_ITS | Patient Health Record ---
Author Organization [facility] Address [address] [place] [address] Care Team Providers Care Equipment Maintenance Engineer Name Role Phone Marcellus June MD Primary Care Provider Jose R Sanchez Unavailable [phone] Reason For Referral No Information Medications Medication [...] Inc [address] [place] [address] [id number] Stefany Woods Self - patient is the insured Medical (General) History Medical History History ICD Code Measles Mumps Chicken pox Surgical History Surgery Date(Month/Year) bariatric 2016 shoulder surgery- right 2018
--- OUTSIDE RECORDS SUMMARY | 2025-07-03 12:46 | XMS_ITS | Patient Health Record ---
Author Organization [facility] Address [address] [place] [address] Care Team Providers Care Product Trainer Name Role Phone Slade (RETIRED) Marcellus VARGHESE Primary Care Provide r Unavailable Daniel Ortiz Unavailable [phone] Allergies No Known Allergies Reason For Referral [...] Problem Status W/U Status Risk Notes Problem 645932348 Encounter for screening for malignant neoplasm of colon (Z12.11) Active confirmed Problem 579494597 History of adenomatous polyp of colon (Z86.010) Active confirmed Problem History of polyp of colon (situation) (989336547) Personal history of colonic polyps (Z86.010) Active confirmed Problem Diverticular disease of colon (327355846) Diverticulosis of large intestine without perforation or abscess without bleeding (K57.30) Active confirmed Problem Screening for malignant neoplasm of rectum (484688987) Encounter for screening for malignant neoplasm of rectum (Z12.12) Active confirmed Problem 566347346 History of colon polyps (Z86.010) Active confirmed Problem 203709544435062 Pre-procedural examination (Z01.818) Active confirmed Problem 885452596 Abnormal UGI series (R93.3) Active confirmed Plan Of Treatment Future Test Test Name Order Date UPPER GI ENDOSCOPY 09/14/2016 COLONOSCOPY 09/14/2016 COLONOSCOPY 12/10/2022 Insurance Providers Payer Name Payer Address Payer Phone Subscriber Number Group Number Insured Name Patient Relationship to Insured Coverage Start Date Coverage End Date MED[place]ARE [place] [address] [place] [address] [phone] [id number] EVELINA SOMMER Self - patient is the insured Medical (General) History Medical History History ICD Code Bipolar disorder Denies [place],DM,CVA,Lung disease,renal dise ase 2 previous colonoscopies in [place]--most recent was in 2008--2 tubular adenomas Colonoscopy [...]
== END 2025-07-03 11:01 | disposition home or self-care (01) ==
LOC: HO.HBS 10:25
PROVIDERS: PCP Internal Medicine; Visit Provider Physician Assistant Surgical
DX: Z98.890 Other specified postprocedural states (principal); Z87.19 Personal history of other diseases of the digestive system; Z98.84 Bariatric surgery status; E66.3 Overweight
CPT/HCPCS: 99024

== ENCOUNTER → 2025-07-03 10:25 | Outpatient (BNVA) | payer MEDICARE, SELFPAY | PROVIDERS: PCP Internal Medicine; Visit Provider Physician Assistant Surgical | DX: Z48.817 Encounter for surgical aftercare following surgery on the skin and subcutaneous tissue (principal); E66.3 Overweight; Z98.84 Bariatric surgery status; Z98.890 Other specified postprocedural states; Z87.19 Personal history of other diseases of the digestive system; Z79.2 Long term (current) use of antibiotics | CPT/HCPCS: 99212 ==

== ENCOUNTER 2025-07-10 08:56 | Outpatient (AMB) | payer MEDICARE, SELFPAY ==
--- NOTE | 2025-07-10 09:11 | A.OFFVIS_ITS ---
VS Expanded 07/10/25 09:14 BP 140/69 H Blood Pressure Location Rt brachial Blood Pressure Position Sitting Pulse 82 Pulse Source Pulse Oximeter Temp 97.9 F Temperature Source Temporal Artery Scan Pulse Oximetry 99 Oxygen Delivery Method Room Air Intake Visit Reasons: (OV) s/p Panniculectomy 06/18/25 Allergies No Known Allergies (No Known Allergies*) Allergy (Verified 07/03/25 10:40) Medication List - Last Reconciled 07/10/25 by JERARDO Lauren calcium citrate-vitamin D3 250 mg-5 mcg (200 unit) 2 tabs PO BID cephalexin 500 mg PO Q12H docusate sodium (Colace) 100 mg PO DAILY lpztoigpvtsb-lji-dlvs-FA-vit K 45 mg iron- 800 mcg-120 mcg (Bariatric Multivitamins) 1 cap PO DAILY ondansetron 4 mg PO Q12H vit C,Y-Xe-nfffg-lutein-zeaxan 250-90-40-1 mg (PreserVision AREDS-2) 1 tab PO BID HPI Comments Details: Pt is 3 weeks s/p panniculectomy with bilateral subcutaneous fat flaps, partial omentectomy, incisional vental hernia repair x5. No fevers at home. Taking abx although reports some loose stools. Following meal plan per Dr. Cortez Drain output averaging has decreased, however 5 days ago was still 40cc/24h. [facility] Medical History (Updated 06/27/25 @ 00:01 by Pasquale Forbes) Tick bite Bipolar disorder GERD (gastroesophageal reflux disease) Steatosis, liver HAIM (obstructive sleep apnea) Surgical History (Updated 07/03/25 @ 10:40 by Tatyana Turner CMA) S/P panniculectomy Hx of cataract extraction H/O repair of rotator cuff H/O gastric sleeve History of left oophorectomy H/O tubal ligation H/O colonoscopy (~01/26/23) S/P laparoscopic hernia repair Hx laparoscopic cholecystectomy H/O section Social History Household Members: Significant Other Housing: Apartment Are you a primary animal care specialist to a significant other at home: No Do you presently have visiting nurse or other home services: No Alcohol intake: never Comment: tolerable Patient Tobacco Use Status: Never used Tobacco Physical Exam Const General: cooperative, comfortable and no acute distress Orientation/consciousness: patient oriented x3 GI Other: soft, nontender, nondistended, panniculectomy incision c/d/i with serosang drain output Neuro General: patient oriented x3 Assessment & Plan Assessment & Plan (1) S/P laparoscopic sleeve gastrectomy: Code(s): Z98.84 - Bariatric surgery status Category: Medical (2) S/P panniculectomy: Code(s): Z98.890 - Other specified postprocedural states Category: Medical (3) S/P repair of recurrent ventral hernia: Code(s): Z98.890 - Other specified postprocedural states; Z87.19 - Personal history of other diseases of the digestive system Category: Medical (4) Overweight (BMI 25.0-29.9): Code(s): E66.3 - Overweight Category: Medical Plan Continue high protein diet. ABX keflex 500 BID, extended as needed?(at least until drain comes out plus 1 week).? Likely will be able to remove drain next week. Pt may use Imodium to help with antibiotic associated diarrhea. Has also started probiotics which she reports has helped. Drain out after consistently 20 mL or less daily.? Abdominal binder at all times except for care x 1 month?MINIMUM. If there are concerns longer.? No driving?until drain out.? No walking outside or exercise for 6 weeks minimum. Walking in the house okay. Assistance getting up for 4 weeks minimum.?No lifting greater than?10 pounds x 2 months and no abdominal exercises x 3 months. RTC 1 week.
[2025-07-10 09:14] VITALS: BP 140/69; PULSE 82; TEMP 36.6; O2SAT 99
--- OUTSIDE RECORDS SUMMARY | 2025-07-10 10:31 | XMS_ITS | Patient Health Record ---
Author Organization [facility] Address [address] [place] [address] Care Team Providers Care Welding Machine Operator Helper Arc Name Role Phone Marcellus June MD Primary Care Provider Jose R Sanchez Unavailable [phone] Reason For Referral No Information Medications Medication [...] Inc [address] [place] [address] [id number] Stefany Woods Self - patient is the insured Medical (General) History Medical History History ICD Code Measles Mumps Chicken pox Surgical History Surgery Date(Month/Year) bariatric 2016 shoulder surgery- right 2018
--- OUTSIDE RECORDS SUMMARY | 2025-07-10 10:31 | XMS_ITS | Patient Health Record ---
Author Organization [facility] Address [address] [place] [address] Care Team Providers Care Company Driver Name Role Phone Slade (RETIRED) Marcellus VARGHESE Primary Care Provide r Unavailable Daniel Ortiz Unavailable [phone] Allergies No Known Allergies Reason For Referral [...] Problem Status W/U Status Risk Notes Problem 154414576 Encounter for screening for malignant neoplasm of colon (Z12.11) Active confirmed Problem 257190891 History of adenomatous polyp of colon (Z86.010) Active confirmed Problem History of polyp of colon (situation) (328933047) Personal history of colonic polyps (Z86.010) Active confirmed Problem Diverticular disease of colon (556786960) Diverticulosis of large intestine without perforation or abscess without bleeding (K57.30) Active confirmed Problem Screening for malignant neoplasm of rectum (253278737) Encounter for screening for malignant neoplasm of rectum (Z12.12) Active confirmed Problem 112684410 History of colon polyps (Z86.010) Active confirmed Problem 188482502401872 Pre-procedural examination (Z01.818) Active confirmed Problem 602660772 Abnormal UGI series (R93.3) Active confirmed Plan Of Treatment Future Test Test Name Order Date UPPER GI ENDOSCOPY 09/14/2016 COLONOSCOPY 09/14/2016 COLONOSCOPY 12/10/2022 Insurance Providers Payer Name Payer Address Payer Phone Subscriber Number Group Number Insured Name Patient Relationship to Insured Coverage Start Date Coverage End Date MEDICARE OF [place] [address] [place] [address] [phone] [id number] EVELINA SOMMER Self - patient is the insured Medical (General) History Medical History History ICD Code Bipolar disorder Denies [place],DM,CVA,Lung disease,renal dise ase 2 previous colonoscopies in [...]
--- OUTSIDE RECORDS SUMMARY | 2025-07-10 10:31 | XMS_ITS | Clinical Summary ---
Author Organization [facility] Address [address] [place], [place] [address] Phone Care Team Providers Care Solar System Installer Name Role Phone Marcellus June MD Primary [...] AM EST Procedure visit [facility] [id number] 11/11/2025 10:15 AM EST Procedure visit [facility] [id number] 11/11/2025 10:45 AM EST Office [facility] [place] [id number] Lucas Wong MD [address] [place], [place] [address] [email or web address] Health Maintenance Due Date Last Done Comments [...] this topic Medical Devices Implanted Type Area Protective Services Officer Device Identifier Shelf Expiration Date Model / Serial / Lot Envista Ee 22.5 Implanted:2023 (Quantity not on file) 03/16/2027 B&L Envista Iol Ee (Ocb) +21.0d- 4 Implanted:2023 (Quantity not on file) 05/16/2027 [place] [id number] MEDICARE PART A & B MEDICARE PART A & B MEDICARE PART A & B MEDICARE PART A & B MEDICARE PART A & B MEDICARE PART A & B MEDICARE PART A & B MEDICARE PART A & B MEDICARE PART A & [place] BL[place] MED[place] PPO BLUE REPLACEMENT MEDICARE PART A & B Care Teams Solar System Installer Relationship Specialty Start Date End Date Marcellus June MD [address] [place] [address] [place] [address] PCP - General Internal Medicine 01/24/23 Additional Source Comments The information contained in this document represents components of the legal health record. It is not the complete legal health record.[facility]
== END 2025-07-10 09:31 | disposition home or self-care (01) ==
LOC: HO.HBS 08:56
PROVIDERS: PCP Internal Medicine; Visit Provider Physician Assistant Surgical
DX: E66.3 Overweight (principal); Z68.28 Body mass index [BMI] 28.0-28.9, adult; Z98.84 Bariatric surgery status; Z87.19 Personal history of other diseases of the digestive system; Z98.890 Other specified postprocedural states
CPT/HCPCS: 99024

== ENCOUNTER → 2025-07-10 08:56 | Outpatient (BNVA) | payer MEDICARE, SELFPAY | PROVIDERS: PCP Internal Medicine; Visit Provider Physician Assistant Surgical | DX: E66.3 Overweight (principal); Z98.84 Bariatric surgery status; Z87.19 Personal history of other diseases of the digestive system; Z98.890 Other specified postprocedural states | CPT/HCPCS: 99212 ==

== ENCOUNTER 2025-07-17 09:54 | Outpatient (AMB) | payer MEDICARE, SELFPAY ==
[2025-07-17 10:10] VITALS: BP 107/52; PULSE 83; TEMP 36.5; O2SAT 95
--- NOTE | 2025-07-17 10:10 | A.OFFVIS_ITS ---
VS Expanded 07/17/25 10:10 BP 107/52 L Blood Pressure Location Rt brachial Blood Pressure Position Sitting Pulse 83 Pulse Source Pulse Oximeter Temp 97.7 F Temperature Source Temporal Artery Scan Pulse Oximetry 95 Oxygen Delivery Method Room Air Intake Visit Reasons: (OV) s/p Panniculectomy 06/18/25 Allergies No Known Allergies (No Known Allergies*) Allergy (Verified 07/03/25 10:40) Medication List - Last Reconciled 07/17/25 by JERARDO Lauren calcium citrate-vitamin D3 250 mg-5 mcg (200 unit) 2 tabs PO BID cephalexin 500 mg PO Q12H docusate sodium (Colace) 100 mg PO DAILY ggqgesutrldm-xno-iibs-FA-vit K 45 mg iron- 800 mcg-120 mcg (Bariatric Multivitamins) 1 cap PO DAILY ondansetron 4 mg PO Q12H vit C,N-Ty-vczxg-lutein-zeaxan 250-90-40-1 mg (PreserVision AREDS-2) 1 tab PO BID HPI Comments Details: Pt is 4w s/p panniculectomy. Reported drain fell out over the weekend. She was instructed to continue abx for [address] Rodriguez. [place] on meal plan, has added in probiotics for diarrhea. Did not wear her binder today. [facility] Medical History (Updated 06/27/25 @ 00:01 by Pasquale Forbes) Tick bite Bipolar disorder GERD (gastroesophageal reflux disease) Steatosis, liver HAIM (obstructive sleep apnea) Surgical History (Updated 07/03/25 @ 10:40 by Tatyana Turner CMA) S/P panniculectomy Hx of cataract extraction H/O repair of rotator cuff H/O gastric sleeve History of left oophorectomy H/O tubal ligation H/O colonoscopy (~01/26/23) S/P laparoscopic hernia repair Hx laparoscopic cholecystectomy H/O section Social History Household Members: Significant Other Housing: Apartment Are you a primary cardiac care unit nurse to a significant other at home: No Do you presently have visiting nurse or other home services: No Alcohol intake: never Comment: tolerable Patient Tobacco Use Status: Never used Tobacco Physical Exam Vital Signs: Last Vital Signs Temp 97.7 F 07/17/25 10:10 Pulse 83 07/17/25 10:10 BP 107/52 L 07/17/25 10:10 Pulse Ox 95 07/17/25 10:10 Oxygen Delivery Method Room Air 07/17/25 10:10 Const General: cooperative, comfortable and no acute distress Orientation/consciousness: patient oriented x3 GI Other: soft, nontender, nondistended, some edema of lower aspect of center of incision but soft without discrete palpable collection, all incisions c/d/i, suture for drain still in place so that is removed today Neuro General: patient oriented x3 Assessment & Plan Assessment & Plan (1) S/P panniculectomy: Code(s): Z98.890 - Other specified postprocedural states Category: Medical (2) S/P laparoscopic sleeve gastrectomy: Code(s): Z98.84 - Bariatric surgery status Category: Medical (3) Overweight (BMI 25.0-29.9): Code(s): E66.3 - Overweight Category: Medical Plan Pt to continue abx x 2 more weeks. Incisions may remain open to air. Gave pt additional binder. No exercise yet. No heavy lifting. Do not extend torso, remain flexed. RTC 2w.
--- OUTSIDE RECORDS SUMMARY | 2025-07-17 10:59 | XMS_ITS | Patient Health Record ---
Author Organization [facility] Address [address] [place] [address] Care Team Providers Care Stereo Equipment Salesperson Name Role Phone Marcellus June MD Primary Care Provider Jose R Sanchez Unavailable [phone] Reason For Referral No Information Medications Medication [...] Inc [address] [place] [address] [id number] Stefany Woods Self - patient is the insured Medical (General) History Medical History History ICD Code Measles Mumps Chicken pox Surgical History Surgery Date(Month/Year) bariatric 2016 shoulder surgery- right 2018
--- OUTSIDE RECORDS SUMMARY | 2025-07-17 10:59 | XMS_ITS | Clinical Summary ---
Author Organization [facility] Address [address] [place], [place] [address] Phone Care Team Providers Care Mutuel Clerk Name Role Phone Marcellus June MD Primary [...] AM EST Procedure visit [facility] [id number] 11/11/2025 10:15 AM EST Procedure visit [facility] [id number] 11/11/2025 10:45 AM EST Office [facility] [place] [id number] Lucas Wong MD [address] [place], [place] [id number] [email or web address] Health Maintenance Due Date Last [...] this topic Medical Devices Implanted Type Area Metal Furniture Assembler Device Identifier Shelf Expiration Date Model / Serial / Lot Envista Ee 22.5 Implanted:2023 (Quantity not on file) 03/16/2027 B&L Envista Iol Ee (Ocb) +21.0d- 4 Implanted:2023 (Quantity not on file) 05/16/2027 [place] [id number] MEDICARE PART A & B MEDICARE PART A & B MEDICARE PART A & B MEDICARE PART A & B MEDICARE PART A & B MEDICARE PART A & B MEDICARE PART A & B MEDICARE PART A & B MEDICARE PART A & B BLUE [place]OSS [place] MED[place] PPO BLUE REPLACEMENT MEDICARE PART A & B Care Teams Mutuel Clerk Relationship Specialty Start Date End Date Marcellus June MD [address] [place] [address] [place] [address] PCP - General Internal Medicine 01/24/23 Additional Source Comments The information contained in this document represents components of the legal health record. It is not the complete legal health record.[facility]
--- OUTSIDE RECORDS SUMMARY | 2025-07-17 10:59 | XMS_ITS | Patient Health Record ---
Author Organization [facility] Address [address] [place] [address] Care Team Providers Care Director Of Strategic Sourcing Name Role Phone Slade (RETIRED) Marcellus VARGHESE Primary Care Provide r Unavailable Daniel Ortiz Unavailable [phone] Allergies No Known Allergies Reason For Referral [...] Problem Status W/U Status Risk Notes Problem 559844202 Encounter for screening for malignant neoplasm of colon (Z12.11) Active confirmed Problem 457678318 History of adenomatous polyp of colon (Z86.010) Active confirmed Problem History of polyp of colon (situation) (644005856) Personal history of colonic polyps (Z86.010) Active confirmed Problem Diverticular disease of colon (681934044) Diverticulosis of large intestine without perforation or abscess without bleeding (K57.30) Active confirmed Problem Screening for malignant neoplasm of rectum (982601936) Encounter for screening for malignant neoplasm of rectum (Z12.12) Active confirmed Problem 971236273 History of colon polyps (Z86.010) Active confirmed Problem 264880860858724 Pre-procedural examination (Z01.818) Active confirmed Problem 159808317 Abnormal UGI series (R93.3) Active confirmed Plan Of Treatment Future Test Test Name Order Date UPPER GI ENDOSCOPY 09/14/2016 COLONOSCOPY 09/14/2016 COLONOSCOPY 12/10/2022 Insurance Providers Payer Name Payer Address Payer Phone Subscriber Number Group Number Insured Name Patient Relationship to Insured Coverage Start Date Coverage End Date MEDICARE OF [place] [address] [place] [address] [phone] [id number] EVELINA SOMMER Self - patient is the insured Medical (General) History Medical History History ICD Code Bipolar disorder Denies [place],DM,CVA,Lung disease,renal dise ase 2 previous colonoscopies in [place]--most recent was in 2008--2 tubular adenomas Colonoscopy [...]
== END 2025-07-17 10:30 | disposition home or self-care (01) ==
LOC: HO.HBS 09:55
PROVIDERS: PCP Internal Medicine; Visit Provider Physician Assistant Surgical
DX: E66.3 Overweight (principal); Z68.28 Body mass index [BMI] 28.0-28.9, adult; Z98.890 Other specified postprocedural states; Z98.84 Bariatric surgery status
CPT/HCPCS: 99024

== ENCOUNTER → 2025-07-17 09:54 | Outpatient (BNVA) | payer MEDICARE, SELFPAY | PROVIDERS: PCP Internal Medicine; Visit Provider Physician Assistant Surgical | DX: Z48.817 Encounter for surgical aftercare following surgery on the skin and subcutaneous tissue (principal); E66.3 Overweight; Z98.84 Bariatric surgery status; Z98.890 Other specified postprocedural states | CPT/HCPCS: 99212 ==

== ENCOUNTER 2025-07-31 09:26 | Outpatient (AMB) | payer MEDICARE, SELFPAY ==
--- NOTE | 2025-07-31 09:39 | MHC.OFFVISWM ---
VS Expanded 07/31/25 09:42 BP 124/74 Blood Pressure Location Lt brachial Blood Pressure Position Sitting Pulse 88 Pulse Source Pulse Oximeter Temp 96.9 F Temperature Source Temporal Artery Scan Pulse Oximetry 95 Oxygen Delivery Method Room Air Intake Visit Reasons: (OV) s/p Panniculectomy 06/18/25 Counter Pocket Trimmer Required: No Accompanied by: Self / Same As Patient Allergies No Known Allergies (No Known Allergies*) Allergy (Verified 07/31/25 09:45) Medication List - Last Reconciled 07/31/25 by JERARDO Lauren calcium citrate-vitamin D3 250 mg-5 mcg (200 unit) 2 tabs PO BID cephalexin 500 mg PO Q12H docusate sodium (Colace) 100 mg PO DAILY zcukneffokqd-hcy-yzvb-FA-vit K 45 mg iron- 800 mcg-120 mcg (Bariatric Multivitamins) 1 cap PO DAILY vit C,L-Vw-sbyxv-lutein-zeaxan 250-90-40-1 mg (PreserVision AREDS-2) 1 tab PO BID HPI Comments Details: Pt is 6w s/p panniculectomy. Has continued abx for [address] Cortez Continues on meal plan, has added in probiotics for diarrhea. Did not wear her binder today. No fevers at home. [facility] Medical History (Updated 06/27/25 @ 00:01 by Pasquale Forbes) Tick bite Bipolar disorder GERD (gastroesophageal reflux disease) Steatosis, liver HAIM (obstructive sleep apnea) Surgical History (Updated 07/03/25 @ 10:40 by Tatyana Turner CMA) S/P panniculectomy Hx of cataract extraction H/O repair of rotator cuff H/O gastric sleeve History of left oophorectomy H/O tubal ligation H/O colonoscopy (~01/26/23) S/P laparoscopic hernia repair Hx laparoscopic cholecystectomy H/O section Social History Household Members: Significant Other Housing: Apartment Are you a primary resident care manager rn to a significant other at home: No Do you presently have visiting nurse or other home services: No Alcohol intake: never Comment: tolerable Patient Tobacco Use Status: Never used Tobacco Physical Exam Vital Signs: Last Vital Signs Temp 96.9 F 07/31/25 09:42 Pulse 88 07/31/25 09:42 BP 124/74 07/31/25 09:42 Pulse Ox 95 07/31/25 09:42 Oxygen Delivery Method Room Air 07/31/25 09:42 Const General: cooperative, comfortable and no acute distress Orientation/consciousness: patient oriented x3 GI Other: soft, nontender, nondistended, incisions healing well, drain site scabbed over Neuro General: patient oriented x3 Assessment & Plan Assessment & Plan (1) S/P panniculectomy: Code(s): Z98.890 - Other specified postprocedural states Category: Medical (2) S/P repair of recurrent ventral hernia: Code(s): Z98.890 - Other specified postprocedural states; Z87.19 - Personal history of other diseases of the digestive system Category: Medical (3) S/P laparoscopic sleeve gastrectomy: Code(s): Z98.84 - Bariatric surgery status Category: Medical (4) Overweight (BMI 25.0-29.9): Code(s): E66.3 - Overweight Category: Medical Plan No additional abx. Incisions open to air. Pt may resume gentle cardio exercise at 2mo postop, no heavy lifting or core exercises until 3mo postop. May drive. RTC in December for annual.
[2025-07-31 09:42] VITALS: BP 124/74; PULSE 88; TEMP 36.1; O2SAT 95
--- OUTSIDE RECORDS SUMMARY | 2025-07-31 10:42 | XMS_ITS | Patient Health Record ---
Author Organization [facility] Address [address] [place] [address] Care Team Providers Care Dry End Tester Name Role Phone Slade (RETIRED) Marcellus VARGHESE Primary Care Provide r Unavailable Daniel Ortiz Unavailable [phone] Allergies No Known Allergies Reason For Referral No Information Medications Medication SIG (Take, Route, Fr equency, Duration) Notes Start Date End Date Status Calcium + D3 12/10/2022 Active K-Nusrat 1 1 tablet orally once a day Not-Taking Furosemide 20 mg 1 tablet Oral once a day Not-Taking Probiotic - as directed Orally 12/10/2022 Active Multivitamin - 1 tablet Orally Once a day; Duration: 30 day(s) 12/10/2022 Active Immunizations Vaccine Route Administration Date Status Comme nts Influenza Unknown 09/01/2022 Administered Problems Problem Type SNOMED Code ICD Code Onset Dates Problem Status W/U Status Risk Notes Problem Screening for malignant neoplasm of colon (088564835) Encounter for screening for malignant neoplasm of colon (Z12.11) Active confirmed Problem History of adenomatous polyp of colon (479225009) History of adenomatous polyp of colon (Z86.010) Active confirmed Problem History of polyp of colon (situation) (494000104) Personal history of colonic polyps (Z86.010) Active confirmed Problem Diverticular disease of colon (586510297) Diverticulosis of large intestine without perforation or abscess without bleeding (K57.30) Active confirmed Problem Screening for malignant neoplasm of rectum (089052525) Encounter for screening for malignant neoplasm of rectum (Z12.12) Active confirmed Problem History of polyp of colon (situation) (565824081) History of colon polyps (Z86.010) Active confirmed Problem Pre-procedure evaluation check (345653514) Pre-procedural examination (Z01.818) Active confirmed Problem Abnormal UGI series (R93.3) Active confirmed Plan Of Treatment Future Test Test Name Order Date UPPER GI ENDOSCOPY 09/14/2016 COLONOSCOPY 09/14/2016 COLONOSCOPY 12/10/2022 Insurance Providers Payer Name Payer Address Payer Phone Subscriber Number Group Number Insured Name Patient Relationship to Insured Coverage Start Date Coverage End Date MEDICARE OF [place] [address] [place] [address] [id number] EVELINA SOMMER Self - patient is the insured Medical (General) History Medical History History ICD Code Bipolar disorder Denies [place],DM,CVA,Lung disease,renal dise ase 2 previous colonoscopies in [...]
--- OUTSIDE RECORDS SUMMARY | 2025-07-31 10:43 | XMS_ITS | Patient Health Record ---
Author Organization [facility] Address [address] [place] [address] Care Team Providers Care Stem Maker Name Role Phone Marcellus June MD Primary Care Provider Jose R Sanchez Unavailable [phone] Reason For Referral No Information Medications Medication [...] Inc [address] [place] [address] [id number] Stefany Woods Self - patient is the insured Medical (General) History Medical History History ICD Code Measles Mumps Chicken pox Surgical History Surgery Date(Month/Year) bariatric 2016 shoulder surgery- right 2018
--- OUTSIDE RECORDS SUMMARY | 2025-07-31 10:43 | XMS_ITS | Clinical Summary ---
Author Organization [facility] Address [address] [place], [place] [address] Phone Care Team Providers Care Contact Officer Name Role Phone Marcellus June MD Primary [...] AM EST Procedure visit [facility] [place] [facility] [id number] 11/11/2025 10:15 AM EST Procedure visit [facility] [id number] 11/11/2025 10:45 AM EST Office Visit [facility] [place] [id number] Lucas Wong MD [address] [place], [place] [address] [email or web address] Health Maintenance Due Date Last Done Comments [...] this topic Medical Devices Implanted Type Area Entertainment Lawyer Device Identifier Shelf Expiration Date Model / Serial / Lot Envista Ee 22.5 Implanted:2023 (Quantity not on file) 03/16/2027 B&L Envista Iol Ee (Ocb) +21.0d- 4 Implanted:2023 (Quantity not on file) 05/16/2027 [place] [id number] MEDICARE PART A & B MEDICARE PART A & B MEDICARE PART A & B MEDICARE PART A & B MEDICARE PART A & B MEDICARE PART A & B MEDICARE PART A & B MEDICARE PART A & B MEDICARE PART A & [place] BLUE [place] MED[place] P[place] BLUE REPLACEMENT MEDICARE PART A & B Care Teams Contact Officer Relationship Specialty Start Date End Date Marcellus June MD [address] [place] [address] [place] [address] PCP - General Internal Medicine 01/24/23 Additional Source Comments The information contained in this document represents components of the legal health record. It is not the complete legal health record.[facility]
== END 2025-07-31 10:07 | disposition home or self-care (01) ==
LOC: HO.HBS 09:27
PROVIDERS: PCP Internal Medicine; Visit Provider Physician Assistant Surgical
DX: E66.3 Overweight (principal); Z68.28 Body mass index [BMI] 28.0-28.9, adult; Z98.890 Other specified postprocedural states; Z87.19 Personal history of other diseases of the digestive system; Z98.84 Bariatric surgery status
CPT/HCPCS: 99024

== ENCOUNTER → 2025-07-31 09:26 | Outpatient (BNVA) | payer MEDICARE, SELFPAY | PROVIDERS: PCP Internal Medicine; Visit Provider Physician Assistant Surgical | DX: Z48.817 Encounter for surgical aftercare following surgery on the skin and subcutaneous tissue (principal); E66.3 Overweight; Z98.890 Other specified postprocedural states; Z87.19 Personal history of other diseases of the digestive system; Z98.84 Bariatric surgery status | CPT/HCPCS: 99212 ==

== ENCOUNTER 2025-08-01 08:44 | Outpatient (REF) | payer MEDICARE, SELFPAY ==
--- NOTE | ~2025-08-01 | MM_ITS ---
EXAMINATION: DXA BONE DENSITY AXIAL HISTORY: Z78.0 - Asymptomatic menopausal state TECHNIQUE: Miroi Dual energy absorptiometry (DEXA) of the lumbar spine, total left hip, and femoral neck was performed. COMPARISON: Comparison is made with the prior examination dated 06/01/2016. FINDINGS: The bone mineral density of the lumbar spine is 1.016 g/cm2, corresponding to a T-score of -1.4, and a Z-score of 0.3. This is indicative of osteopenia. This represents a BMD change of -13.3% compared to the prior exam. This is statistically significant. The bone mineral density of the left total hip is 0.885 g/cm2, corresponding to a T-score of -1.0, and a Z-score of 0.5. This is indicative of normal bone mineral density. This represents a BMD change of -13.2% compared to the prior exam. This is statistically significant. The bone mineral density of the left femoral neck is 0.754 g/cm2, corresponding to a T-score of -2.0, and a Z-score of -0.3. This is indicative of osteopenia. This represents a BMD change of -9.5% compared to the prior exam. FRACTURE RISK: The FRAX index suggests a ten year probability of major osteoporotic fracture of 19.3%, and of hip fracture 4.6%. MM/XR DEXA axial skeleton IMPRESSION: Based on bone mineral density, and according to World Health Organization (WHO) criteria, the diagnosis is consistent with osteopenia. Statistically, 68% of repeat scans fall within 1 SD (+/- 0.010 g/cm2 for AP spine L1-L4) and 1 SD (+/- 0.012 g/cm2 for femur total) FRAX is a trademark of the [employer] [place] [facility] [employer], a World Health Organization (WHO) Collaborating Center. Electronically signed by: Daniel Rosario MD 08/01/2025 09:18 AM EDT
--- OUTSIDE RECORDS SUMMARY | 2025-08-01 09:32 | XMS_ITS | Clinical Summary ---
Author Organization [facility] Address [address] [place], [place] [address] Phone Care Team Providers Care Export Packer Name Role Phone Marcellus June MD Primary [...] AM EST Procedure visit [facility] [place] [facility] [id number] 11/11/2025 10:15 AM EST Procedure visit [facility] [id number] 11/11/2025 10:45 AM EST Office [facility] [place] 1906114 Lucas Wong MD [address] [place], [place] [address] [email or web address] Health Maintenance Due Date Last Done Comments [...] this topic Medical Devices Implanted Type Area Director Of Culture Device Identifier Shelf Expiration Date Model / Serial / Lot Envista Ee 22.5 Implanted:2023 (Quantity not on file) 03/16/2027 B&L Envista Iol Ee (Ocb) +21.0d- 4 Implanted:2023 (Quantity not on file) 05/16/2027 [place] [id number] MEDICARE PART A & B MEDICARE PART A & B MEDICARE PART A & B MEDICARE PART A & B MEDICARE PART A & B MEDICARE PART A & B MEDICARE PART A & B MEDICARE PART A & B MEDICARE PART A & [place] BL[place] MED[place] PPO BLUE REPLACEMENT MEDICARE PART A & B Care Teams Export Packer Relationship Specialty Start Date End Date Marcellus June MD [address] [place] [address] [place] [address] PCP - General Internal Medicine 01/24/23 Additional Source Comments The information contained in this document represents components of the legal health record. It is not the complete legal health record.[facility]
--- OUTSIDE RECORDS SUMMARY | 2025-08-01 09:32 | XMS_ITS | Patient Health Record ---
Author Organization [facility] Address [address] [place] [address] Care Team Providers Care Salesperson Burial Needs Name Role Phone Slade (RETIRED) Marcellus VARGHESE Primary Care Provide r Unavailable Daniel Ortiz Unavailable [phone] Allergies No Known Allergies Reason For Referral [...] Problem Screening for malignant neoplasm of colon (508319124) Encounter for screening for malignant neoplasm of colon (Z12.11) Active confirmed Problem History of adenomatous polyp of colon (939940389) History of adenomatous polyp of colon (Z86.010) Active confirmed Problem History of polyp of colon (situation) (584712545) Personal history of colonic polyps (Z86.010) Active confirmed Problem Diverticular disease of colon (851237672) Diverticulosis of large intestine without perforation or abscess without bleeding (K57.30) Active confirmed Problem Screening for malignant neoplasm of rectum (760074203) Encounter for screening for malignant neoplasm of rectum (Z12.12) Active confirmed Problem History of polyp of colon (situation) (313589840) History of colon polyps (Z86.010) Active confirmed Problem Pre-procedure evaluation check (830907726) Pre-procedural examination (Z01.818) Active confirmed Problem Abnormal UGI series (R93.3) Active confirmed Plan Of Treatment Future Test Test Name Order Date UPPER GI ENDOSCOPY 09/14/2016 COLONOSCOPY 09/14/2016 COLONOSCOPY 12/10/2022 Insurance Providers Payer Name Payer Address Payer Phone Subscriber Number Group Number Insured Name Patient Relationship to Insured Coverage Start Date Coverage End Date MEDICARE OF [place] [address] [place] [address] [id number] EVELINA SOMMER Self - patient is the insured Medical (General) History Medical History History ICD Code Bipolar disorder Denies [place],DM,CVA,Lung disease,renal dise ase 2 previous colonoscopies in [...]
--- OUTSIDE RECORDS SUMMARY | 2025-08-01 09:32 | XMS_ITS | Patient Health Record ---
Author Organization [facility] Address [address] [place] [address] Care Team Providers Care Sweatband Maker Name Role Phone Marcellus June MD Primary Care Provider Jose R Sanchez Unavailable [phone] Reason For Referral No Information Medications Medication [...] Inc [address] [place] [address] [id number] Stefany Woods Self - patient is the insured Medical (General) History Medical History History ICD Code Measles Mumps Chicken pox Surgical History Surgery Date(Month/Year) bariatric 2016 shoulder surgery- right 2018
== END 2025-08-01 08:45 | disposition home or self-care (01) ==
LOC: HO.MAMMO 08:44
PROVIDERS: PCP Internal Medicine; Visit Provider Physician Assistant
DX: Z13.820 Encounter for screening for osteoporosis (principal); Z78.0 Asymptomatic menopausal state
CPT/HCPCS: 77080

== ENCOUNTER → 2025-08-01 08:45 | Outpatient (BNV) | payer MEDICARE, SELFPAY | PROVIDERS: PCP Internal Medicine; Visit Provider Radiology Diagnostic Radiology | DX: E28.39 Other primary ovarian failure (principal) | CPT/HCPCS: 77080 ==